=== PATIENT | male | born 1935 | race Caucasian/White ===

== ENCOUNTER 2021-02-15 12:49 | Inpatient (IN) ==
[2021-02-15] MEDS ORDERED: IOPAMIDOL 100 ML BOTTLE IV ONE (12:50)
[2021-02-15] MEDS ORDERED: ONDANSETRON 4 MG/2 ML VIAL IV ONE (14:29)
[2021-02-15] MEDS ORDERED: HYDROmorphone 0.5 MG/0.5 ML SYRINGE IV ONE (14:29)
--- NOTE | 2021-02-15 14:42 | Emergency Department Note ---
Skin/Abscess/FB HPI General Chief complaint: Skin/Abscess/Rash Stated complaint: Left foot wound Time Seen by Provider: 02/15/21 13:22 Source: patient Mode of arrival: wheelchair Limitations: no limitations History of Present Illness HPI Narrative: Narrative: 85-year-old male presents the ER to be evaluated for cellulitis of the left leg. He was discharged on 09 February for sepsis and left leg cellulitis. He was o verseen by Dr. cardona while inpatient. He has a history of A. fib, hypertension, hyperlipidemia, PAD, CAD CABG chronic prednisone use. He was admitted for sepsis from the left leg cellulitis. Sepsis work-up was negative. He was started on empiric vancomycin as he did test positive for nasal MRSA. During his course his CRP started to drop and his white count normalized. Proving although pain and swelling slower to recover. Erythema was improving. He was discharged to residential facility [facility] for another 10 days. He states he finished antibiotics last Thursday with Dr. Jacobson for evaluation of his peripheral arterial disease. He states he had chills last night but has had no nausea, vomiting, urinary symptoms. He has needed narcotics for pain control and this has been increasing over the last few days. He has no other acute complaints at this time. Related Data Home Medications Medication Instructions Recorded Confirmed dabigatran etexilate 150 mg capsule 150 mg PO BID 03/03/18 02/15/21 amlodipine 5 mg tablet 5 mg PO QDAY 07/15/19 02/15/21 prednisone 5 mg tablet 10 mg PO QDAY tab 07/15/19 02/15/21 diltiazem HCl 180 mg PO QAM 02/15/21 02/15/21 famotidine 20 mg PO BID 02/15/21 02/15/21 furosemide 20 mg PO DAILY 02/15/21 02/15/21 hydrocodone-acetaminophen 1 tab PO Q4H PRN 02/15/21 02/15/21 metoprolol succinate 100 mg PO QDAY 02/15/21 02/15/21 montelukast 10 mg PO QDAY 02/15/21 02/15/21 tramadol 50 mg PO Q6H PRN 02/15/21 02/15/21 vitamins A,C,L-[id number]-[id number] 1 cap PO BID 02/15/21 02/15/21 [PreserVision AREDS] Previous Rx's Medication Instructions Recorded albuterol sulfate 90 mcg/actuation 2 puff INHALATION Q6H #54 g 02/04/18 aerosol inhaler budesonide-formoterol HFA 160 2 puff INHALATION BID #30.6 g 02/04/18 mcg-4.5 mcg/actuation aerosol inhaler simvastatin 10 mg tablet 10 mg PO QDAY #90 tab 02/25/18 tamsulosin 0.4 mg capsule 0.4 mg PO QDAY #90 cap 02/25/18 Allergies Allergy/AdvReac Type Severity Reaction Status Date / Time amiodarone Allergy Unknown Shortness Verified 02/15/21 12:49 of Breath lisinopril Allergy Unknown Coughing Verified 02/15/21 12:49 codeine AdvReac Severe Vomiting Verified 02/15/21 12:49 No to Iodine Allergy Unknown Unknown Uncoded 03/23/20 07:54 No to Latex Allergy Unknown Unknown Uncoded 03/23/20 07:54 Review of Systems ROS ROS Narrative: Narrative: All systems ED: reviewed and negative except as stated. [facility] Narrative Patient History Narrative: Narrative: Medical/Surgical/Family History All Active Problems (Updated 02/15/21 @ 17:37 by River Lau PA-C) Cellulitis (Acute) Psoriasis (Chronic) Active asthma (Chronic) Sinusitis chronic, sphenoidal (Chronic) Presbyopia (Chronic) Nuclear cataract of both eyes (Chronic) Tibial artery disease (Chronic) Severe tricuspid regurgitation (Chronic) Hypertension (Chronic) Chronic Kidney Disease (Chronic) Hx of tricuspid valve repair (Chronic 05/02/14) S/P cardiac pacemaker procedure (Chronic 05/06/13) Hx of mitral valve repair (Chronic 05/02/14) History of cardioversion (Chronic 01/15/12) Tricuspid regurgitation (Chronic) Renal artery stenosis (Chronic) Peripheral arterial disease (Chronic) Paroxysmal atrial fibrillation (Chronic) Osteoarthrosis involving multiple sites (Chronic) Osteoarthritis (Chronic) Mitral regurgitation (Chronic) Prostate cancer (Chronic 02/23/14) Lightheadedness (Chronic) Hypertension, essential (Chronic) Hypercholesterolemia (Chronic) Fatigue (Chronic) Dyspnea and respiratory abnormality (Chronic) Atrial fibrillation (Chronic 11/06/11) Arthritis (Chronic) Medical History (Updated 02/15/21 @ 17:37 by River Lau PA-C) 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 Arthritis Atrial fibrillation (11/06/11) Chronic Kidney Disease hypertensive renal disease Coronary artery disease Dyspnea and respiratory abnormality Fatigue History of cardioversion (01/15/12) Hypercholesterolemia Hyperlipidemia Hypertension Hypertension, essential Lightheadedness with fatigue Mitral regurgitation MRSA (methicillin resistant Staphylococcus aureus) Nuclear cataract of both eyes Osteoarthritis Osteoarthrosis involving multiple sites Paroxysmal atrial fibrillation Peripheral arterial disease Presbyopia Prostate cancer (02/23/14) Renal artery stenosis Severe tricuspid regurgitation Tibial artery disease Asymptomatic Tricuspid regurgitation Severe Surgical History History of coronary artery bypass graft x 2 (05/02/14) with EVH & mitral valve repair and tricuspid valve repair Hx of arthroscopic knee surgery 1997 Hx of CABG (05/02/14) x2, Dr. ana Richard Hx of cardiac catheterization (03/02/14) Left Hx of joint replacement 11/2007 hip replacement by Cody Ballesteros Hx of mitral valve repair (05/02/14) Hx of tricuspid valve repair (05/02/14) stable post op repair Hx of umbilical hernia repair 2003 S/P CABG x 2 with EVH S/P cardiac pacemaker procedure (05/06/13) Status post surgery (03/02/14) ventriculography Family History none listed Alzheimer's disease Coronary artery disease Dementia Malignant neoplasm of prostate mother , 97 Cardiovascular disease Essential hypertension father Diabetes mellitus Malignant neoplasm brother Essential hypertension Multiple myeloma Social History Smoking Status: Never smoker Alcohol Intake Frequency: former alcohol drinker Substance Use: does not use Exam Narrative Narrative: Narrative: Gen: No acute distress, patient is sitting upright in his bed and greets me as I enter the room patient is significantly hard of hearing Eyes: PERRL, no conjunctival injection , and symmetrical lids. Sclerae non icteric HENMT: Normocephalic Atraumatic head, external nose and ears. Moist MM. Patient is hard of hearing CVS: +S1/S2, No murmurs or gallops. Radial pulses 2+ and equal bilat. No swelling RESP: Unlabored respiratory effort . Clear to auscultation bilaterally (CTAB). No noted wheezes rales or ronchi. GI: Nontender/Nondistended (NTND), No focal tenderness MSK: 2+ pitting edema on the right 4+ on the left. Significant margin of erythema, purulent circular, 2 cm lesion on the superior heel overlying the Achilles tendon the surrounding area is erythematous and fluctuant. Very swollen foot with normal sensation and cap refill less than 2. Swelling limits palpation of distal pulses. There is significant overlying erythema and the patient is very tender over the area of purulence. Patient has normal plantarflexion and dorsiflexion even against resistance there is low suspicion for capsular infection or septic joint. Patient swelling on the right is significantly less than the left and there is no evidence of erythema on the right. Skin: Warm, Dry . No rashes or lesions . Cap refill less than 2. Neuro: No focal neurological deficit Psych: Awake, Alert, & Oriented (AAO) x3. Appropriate mood and affect . General Limitations: no limitations Course Course Course Narrative: Patient was given vancomycin and linezolid inpatient at [facility]. He was discharged on 09 February to residential facility. He states his last antibiotics were last Thursday. He has had increasing pain, tenderness and swelling since then. He did have positive MRSA swab. He comes in for reevaluation. His family states that the swelling was improving from when he initially went to the ER and had his hospital stay but now it is become static and his pain is increased. It is still purulent and fluctuant. Patient will be evaluated for significant skin infection and lactate and blood cultures will be ordered at this time. Patient will be given IV Dilaudid for pain Zofran for nausea. Vital Signs Vital signs: Vital Signs Temperature 96.9 F L 02/15/21 12:50 Pulse Rate 79 02/15/21 12:50 Respiratory Rate 16 02/15/21 12:50 Blood Pressure 124/65 02/15/21 12:50 Pulse Oximetry (%) 96 02/15/21 12:50 Temperature 96.9 F L 02/15/21 12:50 Pulse Rate 79 02/15/21 12:50 Respiratory Rate 16 02/15/21 12:50 Blood Pressure 124/65 02/15/21 12:50 Pulse Oximetry (%) 96 02/15/21 12:50 MDM MDM Narrative Medical decision making narrative: Narrative: CBC: Elevated white count of 12 with left shift CMP: Unremarkable Lactate: Normal Wound culture: Pending MRSA swab: Pending CRP: Normal Dr. Christie will be contacted as this patient has failed significant therapy with linezolid and vancomycin. This may be a peripheral arterial disease that also needs to be addressed as the patient has failed this therapy and is not significantly improving. Pt has a pending consult from Dr Jacobson that he hasn't been able to follow up with. Dr. Christie: Request the patient be started on cefepime and vancomycin he is concerned for Achilles tendon involvement and possible infection of the calcane us. He requested an MRI be ordered however the patient has a pacemaker and an MRI cannot be obtained. The next next option would be a CT of the lower extremity with contrast. This will be ordered at this time. IMPRESSION: Diffuse cellulitis throughout the ankle and foot - most prominent in dorsal ft. Region. No evidence of soft tissue abscess, osteomyelitis or septic arthritis. Small contained ulceration in the supralcaneal region. It extends to the lateral border of the Achilles tendon. The Achilles tendon shows equivocal thickening which could indicate mild tendinitis. Old ununited fracture of fifth metatarsal base. 8 mm lateral subluxation of the patella and shallow trochlear groove. 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 If he is not improving he is open to consult from the hospitalist. Dr. Hurley will be consulted at this time for admission. Dr Hurley: I spoke with him [id number] and he said he would see the patient for admission. Discharge Plan Patient/Caregiver Discharge Instructions Pt seen by [facility]ER/PA only: Yes Clinical Impression: Cellulitis Patient Disposition: Xfer As Inpt ([facility]) Follow up with: Aristeo Slaughter MD [Primary Care Provider] - Prescriptions: No Action budesonide-formoterol [Symbicort] 160-4.5 mcg/actuation HFA aerosol inhaler 2 puff INHALATION BID Qty: 30.6 RF: 3 albuterol sulfate 90 mcg/actuation HFA aerosol inhaler 2 puff INHALATION Q6H Qty: 54 RF: 3 tamsulosin [Flomax] 0.4 mg capsule,extended release 24hr 0.4 mg PO QDAY Qty: 90 RF: 3 simvastatin 10 mg tablet 10 mg PO QDAY Qty: 90 RF: 3 diltiazem HCl 180 mg Capsule,Extended Release 24 Hr 180 mg PO QAM RF: 0 metoprolol succinate 100 mg Tablet Extended Release 24 Hr 100 mg PO QDAY RF: 0 hydrocodone-acetaminophen 10-325 mg Tablet 1 tab PO Q4H PRN (Reason: Pain) RF: 0 tramadol 50 mg Tablet 50 mg PO Q6H PRN (Reason: Pain) RF: 0 famotidine 20 mg Tablet 20 mg PO BID RF: 0 montelukast 10 mg Tablet 10 mg PO QDAY RF: 0 furosemide 20 mg tablet 20 mg PO DAILY RF: 0 PreserVision AREDS [id number] Capsule 1 cap PO BID RF: 0 dabigatran etexilate [Pradaxa] 150 mg capsule 150 mg PO BID RF: 0 prednisone 5 mg tablet 10 mg PO QDAY RF: 0 amlodipine 5 mg tablet 5 mg PO QDAY RF: 0
[2021-02-15 15:26] LABS: Basophils # (Auto) 0.04 K/mcL (0.00-0.20); Basophils % (Auto) 0.3 % (0.0-2.0); Eosinophils % (Auto) 2.5 % (0.0-7.0); Hematocrit 39.9 % (41.0-55.0); Hemoglobin 12.7 g/dL (13.5-16.5); Lymphocytes # (Auto) 1.32 K/mcL (1.50-4.80); Mean Cell Volume 91.3 fL (80.0-100.0); Mean Corpuscular HGB Conc 31.8 g/dL (31.0-36.0); Mean Platelet Volume 9.8 fL (7.4-10.4); Monocytes # (Auto) 0.79 K/mcL (0.10-0.90); Monocytes % (Auto) 6.6 % (1.0-12.0); Neutrophils % (Auto) 79.6 % (38.0-78.0); Platelet Count 264 K/mcL (140-440); RBC 4.37 M/mcL (4.50-5.90); Red Cell Distribution Width 15.6 % (11.5-14.5)
[2021-02-15] MEDS ORDERED: VANCOMYCIN PER PHARMACY IV ONE ×2 (15:47→21:09)
[2021-02-15] MEDS ORDERED: CEFEPIME 1 GM VIAL IV ONE ×2 (15:47→21:30)
[2021-02-15 16:04] LABS: ALT/SGPT 30 U/L (<40); AST/SGOT 22 U/L (<40); Albumin 3.3 gm/dL (3.2-5.2); Albumin/Globulin Ratio 1.2 (1.0-2.3); Alkaline Phosphatase 78 U/L (39-117); Bilirubin,Total 0.5 mg/dL (0.1-1.0); Blood Urea Nitrogen 25 mg/dL (8-23); Calcium 8.5 mg/dL (8.6-10.4); Carbon Dioxide 24 mmol/L (22-30); Chloride 102 mmol/L (96-108); Globulin 2.8 gm/dL (2.2-3.7); Glomerular Filtration Rate 77; Glucose 96 mg/dL (70-105)
[2021-02-15] MEDS ORDERED: VANCOMYCIN 1,000 MG in 0.9 % SODIUM CHLORIDE 250 ML IV ONE (16:30)
--- NOTE | 2021-02-15 17:16 | Cat Scan Report ---
CLINICAL INFORMATION: Pain and swelling erythema. Evaluate for osteomyelitis and cellulitis COMPARISON: None. TECHNIQUE: 0.625 mm helical slices were obtained from the femoral condyle throughout the tibia fibula ankle and foot. Following reconstruction, 2.5 mm sagittal coronal axial reformatted processed and reviewed at bone and soft tissue windows FINDINGS: Bone windows show mild osteoporosis particularly in the periarticular regions. There is no specific evidence for osteomyelitis. An old ununited fracture through the fifth metatarsal base appreciated. There is moderate degenerative change in all the interphalangeal joints. Moderate cellulitis is seen diffusely throughout the calf, ankle and foot. No evidence of discrete soft tissue abscess. There is only mild diffuse thickening of the Achilles tendon which may be entirely normal. Small ulceration is seen in the skin adjacent to the distal Achilles tendon region. Moderate atrophy of the soleus and gastrocnemius noted. There is no evidence of anisha fasciitis. IMPRESSION: Diffuse cellulitis throughout the ankle and foot - most prominent in dorsal ft. Region. No evidence of soft tissue abscess, osteomyelitis or septic arthritis. Small contained ulceration in the supralcaneal region. It extends to the lateral border of the Achilles tendon. The Achilles tendon shows equivocal thickening which could indicate mild tendinitis. Old ununited fracture of fifth metatarsal base. 8 mm lateral subluxation of the patella and shallow trochlear groove. 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
--- NOTE | 2021-02-15 18:47 | Internal Med History&Physical ---
HPI History of Present Illness Patient information: Note initiated : 02/15/21 at 6:40 pm Service Date, if different from initiated Date: [] Patient: Halie Bose a 85 y/o M admitted on for Left foot wound. Chief Complaint: [] History of present illness: Mr. Bose is a 85 year old M Presents to the ED with worsening left foot pain. Patient was at [facility] from February 03 through the for left foot cellulitis and sepsis. On discharge he was DC'd with [facility] for 10 days. Patient was discharged to senior living facility. He seemed to be doing better and over the past 24 hours has had increasing pain of his left foot. He is also has an ulcer over the Achilles tendon. He was post to follow-up with Dr. Jacobson for peripheral vascular disease but has not had a chance yet. Case was discussed with Dr. Christie who recommended starting him on IV cefepime and vancomycin. And getting a CT foot which which showed cellulitis throughout the ankle and foot with an ulcer over the Achilles tendon with some thickening which could indicate tendinitis. Case was discussed with Dr. Rae he would felt there is no urgent need for surgery and that patient should be trialed on IV antibiotics. I was then contacted for admission. He is afebrile but has a mild leukocytosis of 12. He has bilateral leg edema with worsening on the left side which is been relatively stable. Review of Systems: Pertinent positives as above. Plus some chills but no fever denies headache/fever/nausea/vomiting/chest or abdominal pain/cough/dyspnea/diarrhea. Remaining 10 point review of system reviewed negative PFSH PFSH All Active Problems (Updated 02/15/21 @ 17:37 by River Lau PA-C) Cellulitis (Acute) Psoriasis (Chronic) Active asthma (Chronic) Sinusitis chronic, sphenoidal (Chronic) Presbyopia (Chronic) Nuclear cataract of both eyes (Chronic) Tibial artery disease (Chronic) Severe tricuspid regurgitation (Chronic) Hypertension (Chronic) Chronic Kidney Disease (Chronic) Hx of tricuspid valve repair (Chronic 05/02/14) S/P cardiac pacemaker procedure (Chronic 05/06/13) Hx of mitral valve repair (Chronic 05/02/14) History of cardioversion (Chronic 01/15/12) Tricuspid regurgitation (Chronic) Renal artery stenosis (Chronic) Peripheral arterial disease (Chronic) Paroxysmal atrial fibrillation (Chronic) Osteoarthrosis involving multiple sites (Chronic) Osteoarthritis (Chronic) Mitral regurgitation (Chronic) Prostate cancer (Chronic 02/23/14) Lightheadedness (Chronic) Hypertension, essential (Chronic) Hypercholesterolemia (Chronic) Fatigue (Chronic) Dyspnea and respiratory abnormality (Chronic) Atrial fibrillation (Chronic 11/06/11) Arthritis (Chronic) Medical History (Updated 02/15/21 @ 17:37 by River Lau PA-C) 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 Arthritis Atrial fibrillation (11/06/11) Chronic Kidney Disease hypertensive renal disease Coronary artery disease Dyspnea and respiratory abnormality Fatigue History of cardioversion (01/15/12) Hypercholesterolemia Hyperlipidemia Hypertension Hypertension, essential Lightheadedness with fatigue Mitral regurgitation MRSA (methicillin resistant Staphylococcus aureus) Nuclear cataract of both eyes Osteoarthritis Osteoarthrosis involving multiple sites Paroxysmal atrial fibrillation Peripheral arterial disease Presbyopia Prostate cancer (02/23/14) Renal artery stenosis Severe tricuspid regurgitation Tibial artery disease Asymptomatic Tricuspid regurgitation Severe Surgical History History of coronary artery bypass graft x 2 (05/02/14) with EVH & mitral valve repair and tricuspid valve repair Hx of arthroscopic knee surgery 1997 Hx of CABG (05/02/14) x2, Dr. ana Richard Hx of cardiac catheterization (03/02/14) Left Hx of joint replacement 11/2007 hip replacement by Cody Ballesteros Hx of mitral valve repair (05/02/14) Hx of tricuspid valve repair (05/02/14) stable post op repair Hx of umbilical hernia repair 2003 S/P CABG x 2 with EVH S/P cardiac pacemaker procedure (05/06/13) Status post surgery (03/02/14) ventriculography Family History none listed Alzheimer's disease Coronary artery disease Dementia Malignant neoplasm of prostate mother , 97 Cardiovascular disease Essential hypertension father Diabetes mellitus Malignant neoplasm brother Essential hypertension Multiple myeloma Social History household members: spouse marital status: other: 4 children alcohol intake frequency: former alcohol drinker substance use type: does not use MEDS/ALLERGIES Home Medications and Allergies Home Medications Medication Instructions Recorded Confirmed Type albuterol sulfate 90 mcg/actuation 2 puff INHALATION Q6H #54 g 02/04/18 02/15/21 Rx aerosol inhaler budesonide-formoterol HFA 160 2 puff INHALATION BID #30.6 g 02/04/18 02/15/21 Rx mcg-4.5 mcg/actuation aerosol inhaler simvastatin 10 mg tablet 10 mg PO QDAY #90 tab 02/25/18 02/15/21 Rx tamsulosin 0.4 mg capsule 0.4 mg PO QDAY #90 cap 02/25/18 02/15/21 Rx dabigatran etexilate 150 mg capsule 150 mg PO BID 03/03/18 02/15/21 History amlodipine 5 mg tablet 5 mg PO QDAY 07/15/19 02/15/21 History prednisone 5 mg tablet 10 mg PO QDAY tab 07/15/19 02/15/21 History diltiazem HCl 180 mg PO QAM 02/15/21 02/15/21 History famotidine 20 mg PO BID 02/15/21 02/15/21 History furosemide 20 mg PO DAILY 02/15/21 02/15/21 History hydrocodone-acetaminophen 1 tab PO Q4H PRN 02/15/21 02/15/21 History metoprolol succinate 100 mg PO QDAY 02/15/21 02/15/21 History montelukast 10 mg PO QDAY 02/15/21 02/15/21 History tramadol 50 mg PO Q6H PRN 02/15/21 02/15/21 History vitamins A,C,D-qjmj-binqxx 1 cap PO BID 02/15/21 02/15/21 History [PreserVision AREDS] Allergies Allergy/AdvReac Type Severity Reaction Status Date / Time amiodarone Allergy Unknown Shortness Verified 02/15/21 12:49 of Breath lisinopril Allergy Unknown Coughing Verified 02/15/21 12:49 codeine AdvReac Severe Vomiting Verified 02/15/21 12:49 No to Iodine Allergy Unknown Unknown Uncoded 03/23/20 07:54 No to Latex Allergy Unknown Unknown Uncoded 03/23/20 07:54 EXAM Constitutional Vitals: Temp Pulse Resp BP Pulse Ox 96.9 F L 84 16 158/66 90 02/15/21 12:50 02/15/21 18:11 02/15/21 12:50 02/15/21 18:03 02/15/21 18:11 Exam: General: Alert, Awake, No acute Distress Eyes/N/T: EOMI, PERRL, Head/Neck: neck supple, normocephalic atraumatic CV: irre irreg, No murmurs, normal s1/s2 Pulm: Clear b/l, no wheezing/rhonchi/rales Abd: soft, nontender, +BS x4 Ext: no clubbing/cyanosis. b/l LE 2-3+ edema L>R. right foot/ankle/calf erythema and tenderness Neuro: Alert, no focal deficits, moves all extremities, CN 2-12 grossly intact, symmetrical strength b/l upper/lower, sensations intact b/l upper/lower Skin: warm/dry DATA Data Completed and Pending Labs: Labs from last 24 hours 02/15/21 02/15/21 02/15/21 15:27 14:54 14:44 WBC 12.0 H RBC 4.37 L Hgb 12.7 L Hct 39.9 L MCV 91.3 MCH 29.1 MCHC 31.8 RDW 15.6 H Plt Count 264 MPV 9.8 Neut % (Auto) 79.6 H Lymph % (Auto) 11.0 L [place] % (Auto) 6.6 Eos % (Auto) 2.5 Baso % (Auto) 0.3 Lymph # (Auto) 1.32 L [place] # (Auto) 0.79 Eos # (Auto) 0.30 Baso # (Auto) 0.04 Absolute Neutrophils 9.58 H VBG Lactic Acid 1.9 Sodium 139 Potassium 4.2 Chloride 102 Carbon Dioxide 24 Anion Gap 13.0 BUN 25 H Creatinine 0.9 GFR Calculation 77 Glucose 96 Calcium 8.5 L Total Bilirubin 0.5 AST 22 ALT 30 Alkaline Phosphatase 78 C-Reactive Protein 0.60 Total Protein 6.1 Albumin 3.3 Globulin 2.8 Albumin/Globulin Ratio 1.2 A/P Narrative A/P Narrative: A: *Left foot/ankle cellulitis w/ulcer over achilles: -case d/w Ortho -case d/w Dr. Christie who recommend cefepime/vanco *CAD/PVD: follows with Dr. Rodriguez. on Statin -supposed to f/u with Dr. Jacobson *Afib: On dabigatran/BB *HTN: *COPD(not on O2): on chronic prednisone *Chronic prednisone use: *GERD: P: -IV cefepime/vancomycin -Dr. Christie consulted -Wound care consulted -leg elevation -cont home dilt/BB/norvasc/statin -cont home prednisone -PT/OT -ppx: Dabigatran/home H2 DNR Time Spent With Patient Time: Total time spent is greater than 50% in coordination of care (as documented) at patient's floor/unit and/or counseling patient:
[2021-02-15] MEDS ORDERED: POTASSIUM CHLORIDE 20 MEQ TABLET PO PRN ×2 (21:09)
[2021-02-15] MEDS ORDERED: SENNOSIDES 1 TABLET PO PRN (21:09)
[2021-02-15] MEDS ORDERED: MAGNESIUM SULFATE 2 GM/50 ML BAG IV PRN (21:09)
[2021-02-15] MEDS ORDERED: IPRATROPIUM/ALBUTEROL 3 ML AMPUL.NEB NEB PRN (21:09)
[2021-02-15] MEDS ORDERED: POLYETHYLENE GLYCOL 3350 17 GM PACKET PO PRN (21:09)
[2021-02-15] MEDS ORDERED: ACETAMINOPHEN 325 MG TABLET PO PRN (21:09)
[2021-02-15] MEDS ORDERED: morphine 2 MG/ML VIAL IV PRN (21:09)
[2021-02-15] MEDS ORDERED: POTASSIUM CHLORIDE 40 MEQ in DEXTROSE 5% IN WATER 500 ML IV PRN (21:09)
[2021-02-15] MEDS ORDERED: VANCOMYCIN 500 MG in 0.9 % SODIUM CHLORIDE 100 ML IV ONE (22:00)
[2021-02-15] MEDS: DOCUSATE SODIUM 100 MG CAPSULE PO SCH (22:29)
[2021-02-15] MEDS: FAMOTIDINE 20 MG TABLET PO SCH (22:29)
[2021-02-15] MEDS: 0.9 % SODIUM CHLORIDE 10 ML SYRINGE IV SCH (22:30)
[2021-02-15] MEDS: BUDESONIDE FORMOTEROL INH SCH (22:30)
[2021-02-15] MEDS: DABIGATRAN ETEXILATE MESYLATE 150 MG CAPSULE PO SCH (22:30)
[2021-02-15] MEDS: HYDROcodone/APAP 10/325MG TABLET PO PRN (22:47)
[2021-02-15] MEDS: ALBUTEROL SULFATE 200 PUFF INHALER INH SCH (22:56)
[2021-02-16] MEDS: ALBUTEROL SULFATE 200 PUFF INHALER INH SCH ×4 (04:30→22:56)
[2021-02-16] MEDS: HYDROcodone/APAP 10/325MG TABLET PO PRN ×3 (04:42→20:32)
[2021-02-16] MEDS: 0.9 % SODIUM CHLORIDE 10 ML SYRINGE IV SCH ×3 (06:03→22:55)
[2021-02-16] MEDS: CEFEPIME 2 GM VIAL IV SCH ×3 (06:03→22:56)
[2021-02-16] MEDS ORDERED: VANCOMYCIN PER PHARMACY IV SCH (07:45)
--- NOTE | 2021-02-16 07:55 | Internal Med Progress Note ---
SUBJECTIVE Subjective Patient information: Note initiated : 02/16/21 at 7:53 am Service Date, if different from initiated Date: [] Patient: Halie Bose 85 y/o M admitted on 02/15/21 for Left foot wound. Chief Complaint: [] Interval history: History of present illness: Mr. Bose is a 85 year old M Presents to the ED with worsening left foot pain. Patient was at [facility] from February 03 through the for left foot cellulitis and sepsis. On discharge he was DC'd with Zyvox for 10 days. [facility]. He seemed to be doing better and over the past 24 hours has had increasing pain of his left foot. He is also has an ulcer over the Achilles tendon. He was post to follow-up with Dr. Jacobson for peripheral vascular disease but has not had a chance yet. Case was discussed with Dr. Christie who recommended starting him on IV cefepime and vancomycin. And getting a CT foot which which showed cellulitis throughout the ankle and foot with an ulcer over the Achilles tendon with some thickening which could indicate tendinitis. Case was discussed with Dr. Rae he would felt there is no urgent need for surgery and that patient should be trialed on IV antibiotics. I was then contacted for admission. He is afebrile but has a mild leukocytosis of 12. He has bilateral leg edema with worsening on the left side which is been relatively stable. 02/16 No overnight event or new complaints. Leukocytosis resolved. Review of Systems: denies headache/fever/chills/nausea/vomiting/chest or abdominal pain/cough/dyspnea/diarrhea. Otherwise see above. Constitutional Vitals: Vital Signs Temp Pulse Resp BP Pulse Ox 97.1 F 69 18 145/72 96 02/16/21 07:07 02/16/21 07:07 02/16/21 07:07 02/16/21 07:07 02/16/21 07:07 Period Temp Pulse Resp BP Sys/Sellers Pulse Ox Last 24 Hr 96.9 F-98.6 F 66-106 12-20 124-158/62-83 90-97 Intake and Output 02/15/21 02/16/21 02/16/21 21:59 05:59 13:59 Intake Total 250 100 Output Total 665 Balance 250 -565 Weight 83.915 kg Intake & Output: Intake & Output 02/15/21 02/16/21 02/16/21 21:59 05:59 13:59 Intake Total 250 100 Output Total 665 Balance 250 -565 Weight 83.915 kg Intake: IV 250 100 Vancomycin 500 mg In Sodium 100 Chloride 0.9% 100 ml @ 100 mls/ hr IV ONCE ONE Rx#:[id number] Vancomycin 1,000 mg In Sodium 250 Chloride 0.9% 250 ml @ 250 mls/ hr IV ONCE ONE Rx#:[id number] Oral 0 Output: Urine Catheter Amount 650 Straight 650 Void Amount 15 Other: Urine Appearance Clear Straight Clear Urine Color Bright Yellow Straight Bright Yellow # Voids 1 Exam: General: Alert, Awake, No acute Distress Eyes/N/T: EOMI, Head/Neck: neck supple, CV: irre irreg, No murmurs, 2 Pulm: Clear b/l, no wheezing/rhonchi/rales Abd: soft, nontender, +BS x4 Ext: no clubbing/cyanosis. b/l LE 2-3+ edema L>R. right foot/ankle/calf erythema and tenderness, ulcer over achilles Neuro: Alert, no focal deficits, moves all extremities, Skin: warm/dry OBJ DATA Labs CBC & Chem 7: 02/16/21 05:45 02/15/21 14:44 Labs: Abnormal Lab Results 02/15/21 02/15/21 14:54 14:44 WBC 12.0 H RBC 4.37 L Hgb 12.7 L Hct 39.9 L RDW 15.6 H Neut % (Auto) 79.6 H Lymph % (Auto) 11.0 L Lymph # (Auto) 1.32 L Absolute Neutrophils 9.58 H BUN 25 H Calcium 8.5 L Meds: Medications Acetaminophen (Acetaminophen 325 Mg Tablet) 650 mg PO Q6HP PRN PRN Reason: PAIN/FEVER > 101 Hydrocodone Bitart/Acetaminophen (Hydrocodone/Apap 10/325mg Tablet) 1 tab PO Q4HP PRN; Protocol PRN Reason: Pain Last Admin: 02/16/21 04:42 Dose: 1 tab Documented by: Albuterol Sulfate (Albuterol Sulfate 200 Puff Inhaler) 2 puff INH Q6H AURY Last Admin: 02/16/21 04:30 Dose: Not Given Documented by: Albuterol/Ipratropium (Ipratropium/Albuterol 3 Ml Ampul.Neb) 3 ml NEB Q4HP PRN PRN Reason: Shortness Of Breath Amlodipine Besylate (Amlodipine 5 Mg Tablet) 5 mg PO QDAY [facility] Cefepime HCl (Cefepime 2 Gm Vial) 2 gm IV Q8H [facility]; Protocol Last Admin: 02/16/21 06:03 Dose: 2 gm Documented by: Dabigatran (Dabigatran Etexilate Mesylate 150 Mg Capsule) 150 mg PO BID [facility] Last Admin: 02/15/21 22:30 Dose: Not Given Documented by: Diltiazem HCl (Diltiazem 180 Mg Cap.Xl.24h) 180 mg PO DAILY [facility] Docusate Sodium (Docusate Sodium 100 Mg Capsule) 100 mg PO BID [facility] Last Admin: 02/15/21 22:29 Dose: 100 mg Documented by: Famotidine (Famotidine 20 Mg Tablet) 20 mg PO BID [facility] Last Admin: 02/15/21 22:29 Dose: 20 mg Documented by: Furosemide (Furosemide 20 Mg Tablet) 20 mg PO DAILY [facility] Potassium Chloride 40 meq/ (Dextrose) 520 mls @ 130 mls/hr IV UD PRN PRN Reason: Potassium < 3 Magnesium Sulfate (Magnesium Sulfate) 2 gm in 50 mls @ 50 mls/hr IV UD PRN PRN Reason: Magnesium </= 1.6 Vancomycin HCl 1,250 mg/ (Sodium Chloride) 500 mls @ 333.3 mls/hr IV Q12H [facility] Metoprolol Succinate (Metoprolol Succinate 50 Mg Tab.Xl.24h) 100 mg PO DAILY [facility] Montelukast Sodium (Montelukast 10 Mg Tablet) 10 mg PO QDAY [facility] Morphine Sulfate (Morphine 2 Mg/Ml Vial) 1 - 3 mg IV Q3HP PRN; Protocol PRN Reason: Per Pain Protocol Ondansetron HCl (Ondansetron 4 Mg/2 Ml Vial) 4 mg IV Q4HP PRN PRN Reason: Nausea And Vomiting (Budesonide- Formoterol [ Symbicort] 160-4.5 Mcg/Act Inhaler 1 dose INH BID [facility] Last Admin: 02/15/21 22:30 Dose: Not Given Documented by: Polyethylene Glycol (Polyethylene Glycol 3350 17 Gm Packet) 17 gm PO DAILYP PRN PRN Reason: Constipation Potassium Chloride (Potassium Chloride 20 Meq Tablet) 40 meq PO UD PRN PRN Reason: Potssium is 3-3.5 Potassium Chloride (Potassium Chloride 20 Meq Tablet) 40 meq PO UD PRN PRN Reason: Potassium < 3 Prednisone (Prednisone 5 Mg Tablet) 10 mg PO QAC [facility] Senna (Sennosides 1 Tablet) 2 tab PO DAILYP PRN PRN Reason: Constipation Simvastatin (Simvastatin 10 Mg Tablet) 10 mg PO QDAY [facility] Sodium Chloride (0.9 % Sodium Chloride 10 Ml Syringe) 10 ml IV Q8 [facility] Last Admin: 02/16/21 06:03 Dose: 10 ml Documented by: Tamsulosin HCl (Tamsulosin 0.4 Mg Capsule) 0.4 mg PO QDAY [facility] Tramadol HCl (Tramadol 50 Mg Tablet) 50 mg PO Q6HP PRN; Protocol PRN Reason: Pain Vancomycin HCl (Vancomycin Per Pharmacy) 1 order IV UD [facility]; Protocol A/P Narrative A/P Narrative: A: *Left foot/ankle cellulitis w/ulcer over Achilles: -case d/w Ortho, no further recs -case d/w Dr. Christie who recommends cefepime/vanco *CAD/PVD: follows with Dr. Rodriguez. on Statin -supposed to f/u with Dr. Jacobson *Afib: On dabigatran/BB *HTN: *COPD(not on O2): on chronic prednisone *Chronic prednisone use: *GERD: P: -IV cefepime/vancomycin -Dr. Christie consulted -Dr. Cross/Wound care consulted -leg elevation -cont home dilt/BB/norvasc/statin -cont home prednisone -PT/OT -ppx: Dabigatran/home H2 DNR Time Spent With Patient Time: Total time spent is greater than 50% in coordination of care (as document ed) at patient's floor/unit and/or counseling patient: QUALITY VTE Deep Vein Thrombosis/Pulmonary Embolism Present on Admission: No
[2021-02-16 08:29] LABS: Hematocrit 36.1 % (41.0-55.0); Hemoglobin 11.6 g/dL (13.5-16.5); Mean Cell Volume 90.7 fL (80.0-100.0); Mean Corpuscular HGB Conc 32.1 g/dL (31.0-36.0); Mean Platelet Volume 9.9 fL (7.4-10.4); Platelet Count 249 K/mcL (140-440); RBC 3.98 M/mcL (4.50-5.90); Red Cell Distribution Width 15.5 % (11.5-14.5); WBC 9.9 K/mcL (4.5-11.0)
[2021-02-16 09:16] LABS: ALT/SGPT 25 U/L (<40); AST/SGOT 20 U/L (<40); Albumin 3.4 gm/dL (3.2-5.2); Albumin/Globulin Ratio 1.5 (1.0-2.3); Alkaline Phosphatase 69 U/L (39-117); Bilirubin,Direct < 0.2 mg/dL (0-0.3); Bilirubin,Total 0.7 mg/dL (0.1-1.0); Blood Urea Nitrogen 19 mg/dL (8-23); Calcium 8.4 mg/dL (8.6-10.4); Carbon Dioxide 26 mmol/L (22-30); Chloride 101 mmol/L (96-108); Globulin 2.2 gm/dL (2.2-3.7); Glomerular Filtration Rate 80; Glucose 82 mg/dL (70-105); Lactate Dehydrogenase 315 U/L (135-225); Phosphorous 2.9 mg/dL (2.5-4.5); Triglycerides 109 mg/dL (<150); Uric Acid 4.6 mg/dL (2.5-8.0)
[2021-02-16 09:27] LABS: Anisocytosis FEW (None Seen); Band Neutrophils % 1 % (0-10); Eosinophils % (Manual) 2 % (0-7); Lymphocytes % 13 % (15-49); Monocytes % (Manual) 4 % (1-12); Platelet Estimate NORMAL (Normal); RBC Morphology ABNORMAL (Normal); Segmented Neutrophils % 80 % (38-78)
[2021-02-16] MEDS: MONTELUKAST 10 MG TABLET PO SCH (09:39)
[2021-02-16] MEDS: predniSONE 5 MG TABLET PO SCH (09:39)
[2021-02-16] MEDS: DOCUSATE SODIUM 100 MG CAPSULE PO SCH ×2 (09:39→20:32)
[2021-02-16] MEDS: SIMVASTATIN 10 MG TABLET PO SCH (09:39)
[2021-02-16] MEDS: METOPROLOL SUCCINATE 50 MG TAB.XL.24H PO SCH (09:39)
[2021-02-16] MEDS: TAMSULOSIN 0.4 MG CAPSULE PO SCH (09:39)
[2021-02-16] MEDS: VANCOMYCIN 1,250 MG in 0.9 % SODIUM CHLORIDE 500 ML IV SCH ×2 (09:40→20:34)
[2021-02-16] MEDS: FAMOTIDINE 20 MG TABLET PO SCH ×2 (09:40→20:32)
[2021-02-16] MEDS: amLODIPine 5 MG TABLET PO SCH (09:40)
[2021-02-16] MEDS: FUROSEMIDE 20 MG TABLET PO SCH (09:49)
[2021-02-16] MEDS: DILTIAZEM 180 MG CAP.XL.24H PO SCH (09:50)
[2021-02-16] MEDS: DABIGATRAN ETEXILATE MESYLATE 150 MG CAPSULE PO SCH ×2 (13:12→20:31)
[2021-02-16] MEDS: BUDESONIDE FORMOTEROL INH SCH ×2 (13:13→20:31)
--- NOTE | 2021-02-16 13:28 | General Surgery Consult Note ---
HPI Data of Consult Consult date: 02/16/21 Requesting physician: Salvador Hurley Primary Care Provider: Aristeo Slaughter Consult Narrative Patient Information: Note initiated : 02/16/21 at 1:10 pm Service Date, if different from initiated Date: [] Patient: Halie Bose 85 y/o M admitted on 02/15/21 for Left foot wound. Chief Complaint: [] Chief complaint: Cellulitis LEFT leg and open ulcer LEFT posterior ankle with exposed tendon Reason for consult: Wound care and wound management. cc:: CC: Salvador Hurley I examined this patient with RN and his present in the room. Reviewed admission and history and progress thus far. Patient was treated for Cellulitis of LEFT foot and leg at [facility] (02/03-02/09/2021) Discharged on PO Zyvox. Subsequently seen at [facility] and admitted to floor. Dr. Kyra DAWSON; Orthopedics has recommended conservative treatment at this time. Constitutional Constitutional: Present as per HPI Integumentary Integumentary: Present skin ulcer and wounds Additional comments: PAD / PVD and Lymphedema of both legs. Gradual improvement in Cellulitis of LEFT leg. OPEN stage 4 ulcer and wound with exposed tendon, LEFT posterior ankle. Neurological Neurological: Present other Additional comments: Detailed examination NOT done. NO focal neurological deficits or asymmetry Psychiatric Psychiatric: Present anxiety and other Additional comments: Frustrated that it's taking long time for wound to heal and cellulitis to resolve. 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) Hx of mitral valve repair (Chronic 05/02/14) History of cardioversion (Chronic 01/15/12) Tricuspid regurgitation (Chronic) Renal artery stenosis (Chronic) Peripheral arterial disease (Chronic) Paroxysmal atrial fibrillation (Chronic) Osteoarthrosis involving multiple sites (Chronic) Osteoarthritis (Chronic) Mitral regurgitation (Chronic) Prostate cancer (Chronic 02/23/14) Lightheadedness (Chronic) Hypertension, essential (Chronic) Hypercholesterolemia (Chronic) Fatigue (Chronic) Dyspnea and respiratory abnormality (Chronic) Atrial fibrillation (Chronic 11/06/11) Arthritis (Chronic) Medical History 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 Arthritis Atrial fibrillation (11/06/11) Chronic Kidney Disease hypertensive renal disease Coronary artery disease Dyspnea and respiratory abnormality Fatigue History of cardioversion (01/15/12) Hypercholesterolemia Hyperlipidemia Hypertension Hypertension, essential Lightheadedness with fatigue Mitral regurgitation MRSA (methicillin resistant Staphylococcus aureus) Nuclear cataract of both eyes Osteoarthritis Osteoarthrosis involving multiple sites Paroxysmal atrial fibrillation Peripheral arterial disease Presbyopia Prostate cancer (02/23/14) Renal artery stenosis Severe tricuspid regurgitation Tibial artery disease Asymptomatic Tricuspid regurgitation Severe Surgical History History of coronary artery bypass graft x 2 (05/02/14) with EVH & mitral valve repair and tricuspid valve repair Hx of arthroscopic knee surgery 1997 Hx of CABG (05/02/14) x2, Dr. ana Richard Hx of cardiac catheterization (03/02/14) Left Hx of joint replacement 11/2007 hip replacement by Cody Ballesteros Hx of mitral valve repair (05/02/14) Hx of tricuspid valve repair (05/02/14) stable post op repair Hx of umbilical hernia repair 2003 S/P CABG x 2 with EVH S/P cardiac pacemaker procedure (05/06/13) Status post surgery (03/02/14) ventriculography Family History none listed Alzheimer's disease Coronary artery disease Dementia Malignant neoplasm of prostate mother , 97 Cardiovascular disease Essential hypertension father Diabetes mellitus Malignant neoplasm brother Essential hypertension Multiple myeloma Social History household members: spouse marital status: other: 4 children alcohol intake frequency: former alcohol drinker substance use type: does not use MEDS/ALLERGIES Home Medications and Allergies Home Medications Medication Instructions Recorded Confirmed Type albuterol sulfate 90 mcg/actuation 2 puff INHALATION Q6H #54 g 02/04/18 02/15/21 Rx aerosol inhaler budesonide-formoterol HFA 160 2 puff INHALATION BID #30.6 g 02/04/18 02/15/21 Rx mcg-4.5 mcg/actuation aerosol inhaler simvastatin 10 mg tablet 10 mg PO QDAY #90 tab 02/25/18 02/15/21 Rx tamsulosin 0.4 mg capsule 0.4 mg PO QDAY #90 cap 02/25/18 02/15/21 Rx dabigatran etexilate 150 mg capsule 150 mg PO BID 03/03/18 02/15/21 History amlodipine 5 mg tablet 5 mg PO QDAY 07/15/19 02/15/21 History prednisone 5 mg tablet 10 mg PO QDAY tab 07/15/19 02/15/21 History diltiazem HCl 180 mg PO QAM 02/15/21 02/15/21 History famotidine 20 mg PO BID 02/15/21 02/15/21 History furosemide 20 mg PO DAILY 02/15/21 02/15/21 History hydrocodone-acetaminophen 1 tab PO Q4H PRN 02/15/21 02/15/21 History metoprolol succinate 100 mg PO QDAY 02/15/21 02/15/21 History montelukast 10 mg PO QDAY 02/15/21 02/15/21 History tramadol 50 mg PO Q6H PRN 02/15/21 02/15/21 History vitamins A,C,Z-iese-mtdwhc 1 cap PO BID 02/15/21 02/15/21 History [PreserVision AREDS] Allergies Allergy/AdvReac Type Severity Reaction Status Date / Time amiodarone Allergy Unknown Shortness Verified 02/15/21 12:49 of Breath lisinopril Allergy Unknown Coughing Verified 02/15/21 12:49 codeine AdvReac Severe Vomiting Verified 02/15/21 12:49 No to Iodine Allergy Unknown Unknown Uncoded 03/23/20 07:54 No to Latex Allergy Unknown Unknown Uncoded 03/23/20 07:54 Physical Examination Vital Signs Vital signs: Temp Pulse Resp BP Pulse Ox 97.4 F 66 16 142/79 96 02/16/21 11:23 02/16/21 11:23 02/16/21 11:23 02/16/21 11:23 02/16/21 11:23 General physical appearance General physical exam: well developed, well nourished and no distress Eyes Eye exam: PERRL and normal ocular movement ENT ENT exam: normal pinna, normal mucosa and no congestion Head Head exam IM: Present atraumatic and normocephalic Neck Neck exam: no masses, trachea midline and no venous distension Cardiovascular Cardiovascular exam IM: Present irregular rhythm Peripheral pulses: 0: dorsalis pedis (L) and posterior tibialis (L) Respiratory Respiratory exam: normal respiratory effort and clear to auscultation Abdomen Abdomen: Present soft, non tender and bowel sounds Integumentary Integumentary: Present other (Incresed pigmentation / lymphedema RIGHT leg. NO ulcers. Gradual resolution of LEFT leg cellulitis and open Stage 4 ulcer LEFT posterior ankle with lymphedema. ) Neurologic Neurologic: Present other (No gross focal deficits or asymmetry. ) Musculoskeletal Musculoskeletal: Present other (Did NOT see the patient standing or lying in bed. Will see his wounds tomorrow ( Thursday02/17/2021 )) Psychiatric Psychiatric: Present oriented to time, speech is normal and other (Frustrated that it's taking long time for him to get better. ) Results Labs Result diagrams: 02/16/21 05:45 02/16/21 05:45 Labs: Abnormal lab results 02/15/21 02/15/21 02/16/21 Range/Units 14:44 14:54 05:45 WBC 12.0 H (4.5-11.0) K/mcL RBC 4.37 L 3.98 L (4.50-5.90) M/mcL Hgb 12.7 L 11.6 L (13.5-16.5) g/dL Hct 39.9 L 36.1 L (41.0-55.0) % RDW 15.6 H 15.5 H (11.5-14.5) % Neut % (Auto) 79.6 H (38.0-78.0) % Lymph % (Auto) 11.0 L (15.0-49.0) % Lymph # (Auto) 1.32 L (1.50-4.80) K/mcL Seg Neutrophils % 80 H (38-78) % Lymphocytes % 13 L (15-49) % Absolute Neutrophils 9.58 H (1.80-8.00) K/mcL RBC Morphology Abnormal A (Normal) Anisocytosis Few A (None Seen) BUN 25 H (8-23) mg/dL Calcium 8.5 L (8.6-10.4) mg/dL Lactate Dehydrogenase (135-225) U/L Total Protein (5.9-8.4) gm/dL 02/16/21 Range/Units 05:45 WBC (4.5-11.0) K/mcL RBC (4.50-5.90) M/mcL Hgb (13.5-16.5) g/dL Hct (41.0-55.0) % RDW (11.5-14.5) % Neut % (Auto) (38.0-78.0) % Lymph % (Auto) (15.0-49.0) % Lymph # (Auto) (1.50-4.80) K/mcL Seg Neutrophils % (38-78) % Lymphocytes % (15-49) % Absolute Neutrophils (1.80-8.00) K/mcL RBC Morphology (Normal) Anisocytosis (None Seen) BUN (8-23) mg/dL Calcium 8.4 L (8.6-10.4) mg/dL Lactate Dehydrogenase 315 H (135-225) U/L Total Protein 5.6 L (5.9-8.4) gm/dL Diabetes panel 02/15/21 02/16/21 Range/Units 14:44 05:45 Sodium 139 138 (133-145) mmol/L Potassium 4.2 3.9 (3.3-5.1) mmol/L Chloride 102 101 (96-108) mmol/L Carbon Dioxide 24 26 (22-30) mmol/L BUN 25 H 19 (8-23) mg/dL Creatinine 0.9 0.8 (0.7-1.2) mg/dL Glucose 96 82 (70-105) mg/dL Calcium 8.5 L 8.4 L (8.6-10.4) mg/dL AST 22 20 (<40) U/L ALT 30 25 (<40) U/L Alkaline Phosphatase 78 69 (39-117) U/L Total Protein 6.1 5.6 L (5.9-8.4) gm/dL Albumin 3.3 3.4 (3.2-5.2) gm/dL Triglycerides 109 (<150) mg/dL Calcium panel 02/15/21 02/16/21 Range/Units 14:44 05:45 Calcium 8.5 L 8.4 L (8.6-10.4) mg/dL Phosphorus 2.9 (2.5-4.5) mg/dL Albumin 3.3 3.4 (3.2-5.2) gm/dL Pituitary panel 02/15/21 02/16/21 Range/Units 14:44 05:45 Sodium 139 138 (133-145) mmol/L Potassium 4.2 3.9 (3.3-5.1) mmol/L Chloride 102 101 (96-108) mmol/L Carbon Dioxide 24 26 (22-30) mmol/L BUN 25 H 19 (8-23) mg/dL Creatinine 0.9 0.8 (0.7-1.2) mg/dL Glucose 96 82 (70-105) mg/dL Calcium 8.5 L 8.4 L (8.6-10.4) mg/dL Adrenal panel 02/15/21 02/16/21 Range/Units 14:44 05:45 Sodium 139 138 (133-145) mmol/L Potassium 4.2 3.9 (3.3-5.1) mmol/L Chloride 102 101 (96-108) mmol/L Carbon Dioxide 24 26 (22-30) mmol/L BUN 25 H 19 (8-23) mg/dL Creatinine 0.9 0.8 (0.7-1.2) mg/dL Glucose 96 82 (70-105) mg/dL Calcium 8.5 L 8.4 L (8.6-10.4) mg/dL Total Bilirubin 0.5 0.7 (0.1-1.0) mg/dL AST 22 20 (<40) U/L ALT 30 25 (<40) U/L Alkaline Phosphatase 78 69 (39-117) U/L Total Protein 6.1 5.6 L (5.9-8.4) gm/dL Albumin 3.3 3.4 (3.2-5.2) gm/dL All other labs normal. A/P Narrative A/P Narrative: Assessment: LEFT foot Cellulitis / Resolving . Now on IV antibiotcs per Dr. Christie. CAD PVD / PAD A fibrillation HTN GERD Easy bruises. On Prednisone. Plan: Continue ongoing wound care. Will see patient tomorrow ( Thursday02/17/2021 ) and check his wounds. Further recommendations to follow. Time Spent With Patient Time: Total time spent is greater than 50% in coordination of care (as documented) at patient's floor/unit and/or counseling patient: Total time spent with greater than 50% in coordination of care (as documented) at patient's floor/unit and/or counseling patient:: 25 - 35 minutes
--- NOTE | 2021-02-16 15:24 | EKG ---
[facility] Test Date: 2021-02-15 Pat Name: Halie Bose Department: [facility] Room: 127 Gender: Male [employer] Professor: : 1935 Requested By: Salvador Hurley Order Number: [id number] Reading MD: Curly Jaeger M.D. Measurements Intervals [place] Rate: 97 P: [place]: QRS: -64 QRSD: 112 T: 110 QT: 372 QTc: 473 Interpretive Statements ATRIAL FIBRILLATION, V-RATE 73-129 INCOMPLETE LEFT BUNDLE BRANCH BLOCK PROBABLE LVH WITH SECONDARY REPOL ABNRM NO PRIOR TRACING FOR COMPARISON ABNORMAL ECG Electronically Signed On 02-16-2021 15:23:45 PDT by Curly Jaeger M.D. /[facility] [place]//[id number]
--- NOTE | 2021-02-16 17:21 | Ultrasound Report ---
CLINICAL INFORMATION: leg wounds COMPARISON: None. FINDINGS: See attached sheet IMPRESSION: 1. 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 Heavy atherosclerotic plaque appreciated 2.Right leg runoff: Common iliac artery 50% stenosis. External iliac, common femoral, profunda femoral, superficial femoral, popliteal arteries demonstrate heavy diffuse calcific plaque. No definite stenoses: however, interrogation limited by shadowing plaque. Anterior tibial artery is occluded distally. Peroneal arteries patent. Posterior tibial artery is occluded proximally. 3.Left leg runoff: Common iliac artery not visualized due to bowel gas. There are multiple stenoses greater than 50% in the common femoral, proximal mid and distal superficial femoral, and popliteal arteries. Anterior tibial artery is not visualized and likely occluded. Diminished velocities noted in the peroneal posterior tibial arteries consistent with high-grade stenoses Suggest: CT abdominal aortogram with runoff. If patient cannot tolerate iodinated contrast, then a MR abdominal aortogram with runoff would be adequate substitute exam Interpreted and Authenticated by: Jose L Schaffer 02/16/21
[2021-02-17] MEDS: ALBUTEROL SULFATE 200 PUFF INHALER INH SCH ×4 (03:17→22:18)
[2021-02-17] MEDS: CEFEPIME 2 GM VIAL IV SCH ×3 (05:47→22:18)
[2021-02-17] MEDS: 0.9 % SODIUM CHLORIDE 10 ML SYRINGE IV SCH ×3 (05:47→22:18)
[2021-02-17] MEDS: HYDROcodone/APAP 10/325MG TABLET PO PRN ×3 (05:50→21:33)
[2021-02-17] MEDS: FAMOTIDINE 20 MG TABLET PO SCH ×2 (08:07→20:29)
[2021-02-17] MEDS: predniSONE 5 MG TABLET PO SCH (08:07)
[2021-02-17] MEDS: DOCUSATE SODIUM 100 MG CAPSULE PO SCH ×2 (08:07→20:29)
[2021-02-17] MEDS: METOPROLOL SUCCINATE 50 MG TAB.XL.24H PO SCH (08:07)
[2021-02-17] MEDS: BUDESONIDE FORMOTEROL INH SCH ×2 (08:07→20:27)
[2021-02-17] MEDS: DILTIAZEM 180 MG CAP.XL.24H PO SCH (08:07)
[2021-02-17] MEDS: DABIGATRAN ETEXILATE MESYLATE 150 MG CAPSULE PO SCH ×2 (08:07→20:28)
[2021-02-17] MEDS: amLODIPine 5 MG TABLET PO SCH (08:07)
[2021-02-17] MEDS: MONTELUKAST 10 MG TABLET PO SCH (08:07)
[2021-02-17] MEDS: FUROSEMIDE 20 MG TABLET PO SCH (08:07)
[2021-02-17] MEDS: TAMSULOSIN 0.4 MG CAPSULE PO SCH (08:12)
[2021-02-17] MEDS: SIMVASTATIN 10 MG TABLET PO SCH (08:13)
--- NOTE | 2021-02-17 08:23 | Internal Med Progress Note ---
SUBJECTIVE Subjective Patient information: Note initiated : 02/17/21 at 8:21 am Service Date, if different from initiated Date: [] Patient: Halie Bose 85 y/o M admitted on 02/15/21 for Left foot wound. Chief Complaint: [] Interval history: History of present illness: Mr. Bose is a 85 year old M Presents to the ED with worsening left foot pain. Patient was at [facility] from February 03 through the for left foot cellulitis and sepsis. On discharge he was DC'd with Zyvox for 10 days. Patient was discharged to [facility] facility. He seemed to be doing better and over the past 24 hours has had increasing pain of his left foot. He is also has an ulcer over the Achilles tendon. He was post to follow-up with Dr. Jacobson for peripheral vascular disease but has not had a chance yet. Case was discussed with Dr. Christie who recommended starting him on IV cefepime and vancomycin. And getting a CT foot which which showed cellulitis throughout the ankle and foot with an ulcer over the Achilles tendon with some thickening which could indicate tendinitis. Case was discussed with Dr. Rae he would felt there is no urgent need for surgery and that patient should be trialed on IV antibiotics. I was then contacted for admission. He is afebrile but has a mild leukocytosis of 12. He has bilateral leg edema with worsening on the left side which is been relatively stable. 02/16 No overnight event or new complaints. Leukocytosis resolved. 02/17 Patient slept much better and seems to be feeling better. Continue IV antibiotics and further Rec from infectious disease and wound care. Review of Systems: denies headache/fever/chills/nausea/vomiting/chest or abdominal pain/cough/dyspnea/diarrhea. Otherwise see above. Constitutional Vitals: Vital Signs Temp Pulse Resp BP Pulse Ox 98 F 93 H 18 112/66 95 02/17/21 07:12 02/17/21 07:12 02/17/21 07:26 02/17/21 07:12 02/17/21 07:12 Period Temp Pulse Resp BP Sys/Sellers Pulse Ox Last 24 Hr 97.4 F-99.0 F 64-98 16-18 112-166/61-79 93-96 Intake and Output 02/16/21 02/17/21 02/17/21 21:59 05:59 13:59 Intake Total 500 550 Output Total 625 250 Balance -125 300 Weight 87.317 kg Intake & Output: Intake & Output 02/16/21 02/17/21 02/17/21 21:59 05:59 13:59 Intake Total 500 550 Output Total 625 250 Balance -125 300 Weight 87.317 kg Intake: IV 500 500 Vancomycin 1,250 mg In Sodium 500 500 Chloride 0.9% 500 ml @ 333.3 mls/hr IV Q12H [facility] Rx#: [id number] Oral 0 50 Output: Void Amount 625 250 Other: Urine Appearance Clear Clear Urine Color Bright Yellow Bright Yellow Exam: General: Alert, Awake, No acute Distress Eyes/N/T: EOMI, Head/Neck: neck supple, CV: irre irreg, No murmurs, 2 Pulm: Clear b/l, no wheezing/rhonchi/rales Abd: soft, nontender, +BS x4 Ext: no clubbing/cyanosis. b/l LE 2-3+ edema L>R. right foot/ankle/calf erythema and tenderness, ulcer over achilles Neuro: Alert, no focal deficits, moves all extremities, Skin: warm/dry OBJ DATA Labs CBC & Chem 7: 02/16/21 05:45 02/16/21 05:45 Labs: Abnormal Lab Results 02/16/21 02/16/21 02/15/21 05:45 05:45 14:54 WBC 12.0 H RBC 3.98 L 4.37 L Hgb 11.6 L 12.7 L Hct 36.1 L 39.9 L RDW 15.5 H 15.6 H Neut % (Auto) 79.6 H Lymph % (Auto) 11.0 L Lymph # (Auto) 1.32 L Seg Neutrophils % 80 H Lymphocytes % 13 L Absolute Neutrophils 9.58 H RBC Morphology Abnormal A Anisocytosis Few A BUN Calcium 8.4 L Lactate Dehydrogenase 315 H Total Protein 5.6 L 02/15/21 14:44 WBC RBC Hgb Hct RDW Neut % (Auto) Lymph % (Auto) Lymph # (Auto) Seg Neutrophils % Lymphocytes % Absolute Neutrophils RBC Morphology Anisocytosis BUN 25 H Calcium 8.5 L Lactate Dehydrogenase Total Protein Meds: Medications Acetaminophen (Acetaminophen 325 Mg Tablet) 650 mg PO Q6HP PRN PRN Reason: PAIN/FEVER > 101 Hydrocodone Bitart/Acetaminophen (Hydrocodone/Apap 10/325mg Tablet) 1 tab PO Q4HP PRN; Protocol PRN Reason: Pain Last Admin: 02/17/21 05:50 Dose: 1 tab Documented by: Albuterol Sulfate (Albuterol Sulfate 200 Puff Inhaler) 2 puff INH Q6H [facility] Last Admin: 02/17/21 08:13 Dose: Not Given Documented by: Albuterol/Ipratropium (Ipratropium/Albuterol 3 Ml Ampul.Neb) 3 ml NEB Q4HP PRN PRN Reason: Shortness Of Breath Amlodipine Besylate (Amlodipine 5 Mg Tablet) 5 mg PO QDAY [facility] Last Admin: 02/17/21 08:07 Dose: 5 mg Documented by: Cefepime HCl (Cefepime 2 Gm Vial) 2 gm IV Q8H [facility]; Protocol Last Admin: 02/17/21 05:47 Dose: 2 gm Documented by: Dabigatran (Dabigatran Etexilate Mesylate 150 Mg Capsule) 150 mg PO BID [facility] Last Admin: 02/17/21 08:07 Dose: 150 mg Documented by: Diltiazem HCl (Diltiazem 180 Mg Cap.Xl.24h) 180 mg PO DAILY [facility] Last Admin: 02/17/21 08:07 Dose: 180 mg Documented by: Docusate Sodium (Docusate Sodium 100 Mg Capsule) 100 mg PO BID [facility] Last Admin: 02/17/21 08:07 Dose: 100 mg Documented by: Famotidine (Famotidine 20 Mg Tablet) 20 mg PO BID [facility] Last Admin: 02/17/21 08:07 Dose: 20 mg Documented by: Furosemide (Furosemide 20 Mg Tablet) 20 mg PO DAILY [facility] Last Admin: 02/17/21 08:07 Dose: 20 mg Documented by: Potassium Chloride 40 meq/ (Dextrose) 520 mls @ 130 mls/hr IV UD PRN PRN Reason: Potassium < 3 Magnesium Sulfate (Magnesium Sulfate) 2 gm in 50 mls @ 50 mls/hr IV UD PRN PRN Reason: Magnesium </= 1.6 Vancomycin HCl 1,250 mg/ (Sodium Chloride) 500 mls @ 333.3 mls/hr IV Q12H [facility] Last Infusion: 02/16/21 23:50 Dose: Infused Documented by: Metoprolol Succinate (Metoprolol Succinate 50 Mg Tab.Xl.24h) 100 mg PO DAILY [facility] Last Admin: 02/17/21 08:07 Dose: 100 mg Documented by: Montelukast Sodium (Montelukast 10 Mg Tablet) 10 mg PO QDAY [facility] Last Admin: 02/17/21 08:07 Dose: 10 mg Documented by: Morphine Sulfate (Morphine 2 Mg/Ml Vial) 1 - 3 mg IV Q3HP PRN; Protocol PRN Reason: Per Pain Protocol Ondansetron HCl (Ondansetron 4 Mg/2 Ml Vial) 4 mg IV Q4HP PRN PRN Reason: Nausea And Vomiting (Budesonide- Formoterol [ Symbicort] 160-4.5 Mcg/Act Inhaler 1 dose INH BID [facility] Last Admin: 02/17/21 08:07 Dose: 1 dose Documented by: Polyethylene Glycol (Polyethylene Glycol 3350 17 Gm Packet) 17 gm PO DAILYP PRN PRN Reason: Constipation Potassium Chloride (Potassium Chloride 20 Meq Tablet) 40 meq PO UD PRN PRN Reason: Potssium is 3-3.5 Potassium Chloride (Potassium Chloride 20 Meq Tablet) 40 meq PO UD PRN PRN Reason: Potassium < 3 Prednisone (Prednisone 5 Mg Tablet) 10 mg PO [facility] Last Admin: 02/17/21 08:07 Dose: 10 mg Documented by: Senna (Sennosides 1 Tablet) 2 tab PO DAILYP PRN PRN Reason: Constipation Simvastatin (Simvastatin 10 Mg Tablet) 10 mg PO QDAY [facility] Last Admin: 02/17/21 08:13 Dose: 10 mg Documented by: Sodium Chloride (0.9 % Sodium Chloride 10 Ml Syringe) 10 ml IV Q8 [facility] Last Admin: 02/17/21 05:47 Dose: 10 ml Documented by: Tamsulosin HCl (Tamsulosin 0.4 Mg Capsule) 0.4 mg PO QDAY [facility] Last Admin: 02/17/21 08:12 Dose: 0.4 mg Documented by: Tramadol HCl (Tramadol 50 Mg Tablet) 50 mg PO Q6HP PRN; Protocol PRN Reason: Pain Vancomycin HCl (Vancomycin Per Pharmacy) 1 order IV UD [facility]; Protocol A/P Narrative A/P Narrative: A: *Left foot/ankle cellulitis w/ulcer over Achilles: -case d/w Ortho, no further recs -case d/w Dr. Christie who recommends cefepime/vanco -leukocytosis resolved *CAD/PVD: follows with Dr. Rodriguez. on Statin -supposed to f/u with Dr. Jacobson *Afib: On dabigatran/BB *HTN: *COPD(not on O2): on chronic prednisone *Chronic prednisone use: *GERD: P: -IV cefepime/vancomycin -Dr. Christie consulted -Dr. Cross/Wound care consulted, pt will potentially undergo debridement -leg elevation -cont home dilt/BB/norvasc/statin -cont home prednisone -PT/OT -ppx: Dabigatran/home H2 DNR Time Spent With Patient Time: Total time spent is greater than 50% in coordination of care (as documented) at patient's floor/unit and/or counseling patient: QUALITY VTE Deep Vein Thrombosis/Pulmonary Embolism Present on Admission: No
[2021-02-17] MEDS: VANCOMYCIN 1,000 MG in 0.9 % SODIUM CHLORIDE 250 ML IV SCH ×2 (09:40→20:27)
[2021-02-17] MEDS: VANCOMYCIN 1,250 MG in 0.9 % SODIUM CHLORIDE 500 ML IV SCH (10:13)
--- NOTE | 2021-02-17 12:55 | General Surgery Progress Note ---
SUBJECTIVE Subjective Patient information: Note initiated : 02/17/21 at 12:43 pm Service Date, if different from initiated Date: [] Patient: Halie Bose 85 y/o M admitted on 02/15/21 for Left foot wound. Chief Complaint: [] Additional PMFSH (Level 3 Only): Patient seen with Kathleen CARTER. LEFT posterior and lateral ankle wounds examined. Constitutional Vitals: Vital Signs Temp Pulse Resp BP Pulse Ox 98.2 F 65 18 129/68 94 02/17/21 11:46 02/17/21 11:46 02/17/21 11:46 02/17/21 11:46 02/17/21 11:46 Period Temp Pulse Resp BP Sys/Sellers Pulse Ox Last 24 Hr 97.6 F-99.0 F 64-98 16-18 112-166/61-75 93-96 Intake and Output 02/16/21 02/17/21 02/17/21 21:59 05:59 13:59 Intake Total 500 550 250 Output Total 625 250 Balance -125 300 250 Weight 192 lb 8 oz Intake & Output: Intake & Output 02/16/21 02/17/21 02/17/21 21:59 05:59 13:59 Intake Total 500 550 250 Output Total 625 250 Balance -125 300 250 Weight 192 lb 8 oz Intake: IV 500 500 250 Vancomycin 1,000 mg In Sodium 250 Chloride 0.9% 250 ml @ 250 mls/ hr IV Q12H [facility] Rx#:[id number] Vancomycin 1,250 mg In Sodium 500 500 Chloride 0.9% 500 ml @ 333.3 mls/hr IV Q12H [facility] Rx#: [id number] Oral 0 50 Output: Void Amount 625 250 Other: Meal Breakfast Percent of Meal Consumed 100% Feeding Ability Independent Urine Appearance Clear Clear Urine Color Bright Yellow Bright Yellow General appearance: cooperative and no acute distress Exam: Afebrile. VSS. Able to move in bed and lie on RIGHT side down. LEFT foot and ankle examined. Resolving soft tissue edema and cellulitis of of LEFT leg. Dry scabbed Epidermal ulcer site. Resolving periwound edema of skin and sub cutaneous tissue, Stage 4 open wound of posterior ankle at site of Achilles tendon insertion. Exposed tendon. Undermining at 12 O'clock for 5 CM. NO odor, NO purulence, NO warmth and NO crepitus. Suspect soft tissue necrosis and debris around and above wound bed. Will await MRI of foot, ankle and leg without contrast. Patient will need debridement, pulse lavage and deep tissue biopsies and cultures later. A/P Narrative A/P Narrative: Assessment: Open wound ulcer LEFT posterior ankle and Stage 4 ulcer, Exposed Achilles tendon. Dry scabbed epidermal ulcer over LEFT lateral malleolus. Plan: Continue ongoing wound care as discussed at bedside with Kathleen CARTER. Non contrast MRI of LEFT foot, ankle and leg. Further recommendations to follow. Time Spent With Patient Time: Total time spent is greater than 50% in coordination of care (as documented) at patient's floor/unit and/or counseling patient: Total time spent with greater than 50% in coordination of care (as documented) at patient's floor/unit and/or counseling patient:: 25 - 35 minutes
[2021-02-17] MEDS: traMADol 50 MG TABLET PO PRN (22:30)
[2021-02-18] MEDS: HYDROcodone/APAP 10/325MG TABLET PO PRN (04:01)
[2021-02-18] MEDS: ALBUTEROL SULFATE 200 PUFF INHALER INH SCH ×5 (04:09→21:20)
[2021-02-18] MEDS: 0.9 % SODIUM CHLORIDE 10 ML SYRINGE IV SCH ×3 (06:00→22:10)
[2021-02-18] MEDS: CEFEPIME 2 GM VIAL IV SCH ×3 (06:00→22:15)
--- NOTE | 2021-02-18 07:29 | Internal Med Progress Note ---
SUBJECTIVE Subjective Patient information: Note initiated : 02/18/21 at 7:26 am Service Date, if different from initiated Date: [] Patient: Halie Bose 85 y/o M admitted on 02/15/21 for Left foot wound. Chief Complaint: [] Interval history: History of present illness: Mr. Bose is a 85 year old M Presents to the ED with worsening left foot pain. Patient was at [facility] from February 03 through the for left foot cellulitis and sepsis. On discharge he was DC'd with Zyvox for 10 days. Patient was discharged [facility]. He seemed to be doing better and over the past 24 hours has had increasing pain of his left foot. He is also has an ulcer over the Achilles tendon. He was post to follow-up with Dr. Jacobson for peripheral vascular disease but has not had a chance yet. Case was discussed with Dr. Christie who recommended starting him on IV cefepime and vancomycin. And getting a CT foot which which showed cellulitis throughout the ankle and foot with an ulcer over the Achilles tendon with some thickening which could indicate tendinitis. Case was discussed with Dr. Rae he would felt there is no urgent need for surgery and that patient should be trialed on IV antibiotics. I was then contacted for admission. He is afebrile but has a mild leukocytosis of 12. He has bilateral leg edema with worsening on the left side which is been relatively stable. 02/16 No overnight event or new complaints. Leukocytosis resolved. 02/17 Patient slept much better and seems to be feeling better. Continue IV antibiotics and further Rec from infectious disease and wound care. 02/18 Patient complains of poor sleep because of foot pain. Otherwise no new complaints. Wound care surgeon likely images and then debridement. Review of Systems: denies headache/fever/chills/nausea/vomiting/chest or abdominal pain/cough/dyspnea/diarrhea. Otherwise see above. Constitutional Vitals: Vital Signs Temp Pulse Resp BP Pulse Ox 98.2 F 97 H 16 147/78 95 02/18/21 03:55 02/18/21 03:55 02/18/21 03:55 02/18/21 03:55 02/18/21 03:55 Period Temp Pulse Resp BP Sys/Sellers Pulse Ox Last 24 Hr 98.2 F-98.8 F 65-98 16-18 120-147/61-78 91-95 Intake and Output 02/17/21 02/18/21 02/18/21 21:59 05:59 13:59 Intake Total 375 Output Total 825 200 Balance -825 175 Weight 86.772 kg Intake & Output: Intake & Output 02/17/21 02/18/21 02/18/21 21:59 05:59 13:59 Intake Total 375 Output Total 825 200 Balance -825 175 Weight 86.772 kg Intake: Oral 375 Output: Void Amount 825 200 Other: Urine Appearance Clear Clear Urine Color Bright Yellow Bright Yellow Stool Size Large Small Stool Color Brown Brown Stool Consistency Soft Formed Exam: General: Alert, Awake, No acute Distress Eyes/N/T: EOMI, Head/Neck: neck supple, CV: irre irreg, No murmurs, 2 Pulm: Clear b/l, no wheezing/rhonchi/rales Abd: soft, nontender, +BS x4 Ext: no clubbing/cyanosis. b/l LE 2-3+ edema L>R. right foot/ankle/calf erythema and tenderness, ulcer over achilles Neuro: Alert, no focal deficits, moves all extremities, Skin: warm/dry OBJ DATA Labs CBC & Chem 7: 02/16/21 05:45 02/16/21 05:45 Labs: Abnormal Lab Results 02/16/21 02/16/21 02/15/21 05:45 05:45 14:54 WBC 12.0 H RBC 3.98 L 4.37 L Hgb 11.6 L 12.7 L Hct 36.1 L 39.9 L RDW 15.5 H 15.6 H Neut % (Auto) 79.6 H Lymph % (Auto) 11.0 L Lymph # (Auto) 1.32 L Seg Neutrophils % 80 H Lymphocytes % 13 L Absolute Neutrophils 9.58 H RBC Morphology Abnormal A Anisocytosis Few A BUN Calcium 8.4 L Lactate Dehydrogenase 315 H Total Protein 5.6 L 02/15/21 14:44 WBC RBC Hgb Hct RDW Neut % (Auto) Lymph % (Auto) Lymph # (Auto) Seg Neutrophils % Lymphocytes % Absolute Neutrophils RBC Morphology Anisocytosis BUN 25 H Calcium 8.5 L Lactate Dehydrogenase Total Protein Meds: Medications Acetaminophen (Acetaminophen 325 Mg Tablet) 650 mg PO Q6HP PRN PRN Reason: PAIN/FEVER > 101 Hydrocodone Bitart/Acetaminophen (Hydrocodone/Apap 10/325mg Tablet) 1 tab PO Q4HP PRN; Protocol PRN Reason: Pain Last Admin: 02/18/21 04:01 Dose: 1 tab Documented by: Albuterol Sulfate (Albuterol Sulfate 200 Puff Inhaler) 2 puff INH Q6H [facility] Last Admin: 02/18/21 04:09 Dose: Not Given Documented by: Albuterol/Ipratropium (Ipratropium/Albuterol 3 Ml Ampul.Neb) 3 ml NEB Q4HP PRN PRN Reason: Shortness Of Breath Amlodipine Besylate (Amlodipine 5 Mg Tablet) 5 mg PO QDAY [facility] Last Admin: 02/17/21 08:07 Dose: 5 mg Documented by: Cefepime HCl (Cefepime 2 Gm Vial) 2 gm IV Q8H [facility]; Protocol Last Admin: 02/18/21 06:00 Dose: 2 gm Documented by: Dabigatran (Dabigatran Etexilate Mesylate 150 Mg Capsule) 150 mg PO BID [facility] Last Admin: 02/17/21 20:28 Dose: 150 mg Documented by: Diltiazem HCl (Diltiazem 180 Mg Cap.Xl.24h) 180 mg PO DAILY [facility] Last Admin: 02/17/21 08:07 Dose: 180 mg Documented by: Docusate Sodium (Docusate Sodium 100 Mg Capsule) 100 mg PO BID [facility] Last Admin: 02/17/21 20:29 Dose: 100 mg Documented by: Famotidine (Famotidine 20 Mg Tablet) 20 mg PO BID [facility] Last Admin: 02/17/21 20:29 Dose: 20 mg Documented by: Furosemide (Furosemide 20 Mg Tablet) 20 mg PO DAILY [facility] Last Admin: 02/17/21 08:07 Dose: 20 mg Documented by: Potassium Chloride 40 meq/ (Dextrose) 520 mls @ 130 mls/hr IV UD PRN PRN Reason: Potassium < 3 Magnesium Sulfate (Magnesium Sulfate) 2 gm in 50 mls @ 50 mls/hr IV UD PRN PRN Reason: Magnesium </= 1.6 Vancomycin HCl 1,000 mg/ (Sodium Chloride) 250 mls @ 250 mls/hr IV Q12H [facility] Last Admin: 02/17/21 20:27 Dose: 250 mls/hr Documented by: Metoprolol Succinate (Metoprolol Succinate 50 Mg Tab.Xl.24h) 100 mg PO DAILY [facility] Last Admin: 02/17/21 08:07 Dose: 100 mg Documented by: Montelukast Sodium (Montelukast 10 Mg Tablet) 10 mg PO QDAY [facility] Last Admin: 02/17/21 08:07 Dose: 10 mg Documented by: Morphine Sulfate (Morphine 2 Mg/Ml Vial) 1 - 3 mg IV Q3HP PRN; Protocol PRN Reason: Per Pain Protocol Ondansetron HCl (Ondansetron 4 Mg/2 Ml Vial) 4 mg IV Q4HP PRN PRN Reason: Nausea And Vomiting (Budesonide- Formoterol [ Symbicort] 160-4.5 Mcg/Act Inhaler 1 dose INH BID [facility] Last Admin: 02/17/21 20:27 Dose: 1 dose Documented by: Polyethylene Glycol (Polyethylene Glycol 3350 17 Gm Packet) 17 gm PO DAILYP PRN PRN Reason: Constipation Potassium Chloride (Potassium Chloride 20 Meq Tablet) 40 meq PO UD PRN PRN Reason: Potssium is 3-3.5 Potassium Chloride (Potassium Chloride 20 Meq Tablet) 40 meq PO UD PRN PRN Reason: Potassium < 3 Prednisone (Prednisone 5 Mg Tablet) 10 mg PO [facility] Last Admin: 02/17/21 08:07 Dose: 10 mg Documented by: Senna (Sennosides 1 Tablet) 2 tab PO DAILYP PRN PRN Reason: Constipation Simvastatin (Simvastatin 10 Mg Tablet) 10 mg PO QDAY [facility] Last Admin: 02/17/21 08:13 Dose: 10 mg Documented by: Sodium Chloride (0.9 % Sodium Chloride 10 Ml Syringe) 10 ml IV Q8 [facility] Last Admin: 02/18/21 06:00 Dose: 10 ml Documented by: Tamsulosin HCl (Tamsulosin 0.4 Mg Capsule) 0.4 mg PO QDAY [facility] Last Admin: 02/17/21 08:12 Dose: 0.4 mg Documented by: Tramadol HCl (Tramadol 50 Mg Tablet) 50 mg PO Q6HP PRN; Protocol PRN Reason: Pain Last Admin: 02/17/21 22:30 Dose: 50 mg Documented by: Vancomycin HCl (Vancomycin Per Pharmacy) 1 order IV UD [facility]; Protocol A/P Narrative A/P Narrative: A: *Left foot/ankle cellulitis w/ulcer over Achilles: -case d/w Ortho, no further recs -case d/w Dr. Christie who recommends cefepime/vanco -leukocytosis resolved *CAD/PVD: follows with Dr. Rodriguez. on Statin -supposed to f/u with Dr. Jacobson *Afib: On dabigatran/BB *HTN: *COPD(not on O2): on chronic prednisone *Chronic prednisone use: *GERD: P: -IV cefepime/vancomycin -Dr. Christie consulted -Dr. Cross/Wound care consulted, pt will undergo debridement -leg elevation -cont home dilt/BB/norvasc/statin -cont home prednisone -PT/OT -ppx: Dabigatran/home H2 DNR Time Spent With Patient Time: Total time spent is greater than 50% in coordination of care (as documented) at patient's floor/unit and/or counseling patient: QUALITY VTE Deep Vein Thrombosis/Pulmonary Embolism Present on Admission: No
[2021-02-18] MEDS: MONTELUKAST 10 MG TABLET PO SCH (08:30)
[2021-02-18] MEDS: TAMSULOSIN 0.4 MG CAPSULE PO SCH (08:31)
[2021-02-18] MEDS: amLODIPine 5 MG TABLET PO SCH (08:31)
[2021-02-18] MEDS: FAMOTIDINE 20 MG TABLET PO SCH ×2 (08:31→21:00)
[2021-02-18] MEDS: FUROSEMIDE 20 MG TABLET PO SCH (08:31)
[2021-02-18] MEDS: DOCUSATE SODIUM 100 MG CAPSULE PO SCH ×2 (08:31→21:00)
[2021-02-18] MEDS: DILTIAZEM 180 MG CAP.XL.24H PO SCH (08:32)
[2021-02-18] MEDS: predniSONE 5 MG TABLET PO SCH (08:32)
[2021-02-18] MEDS: METOPROLOL SUCCINATE 50 MG TAB.XL.24H PO SCH (08:32)
[2021-02-18] MEDS: SIMVASTATIN 10 MG TABLET PO SCH (08:32)
[2021-02-18] MEDS: DABIGATRAN ETEXILATE MESYLATE 150 MG CAPSULE PO SCH ×2 (08:33→21:01)
[2021-02-18] MEDS: BUDESONIDE FORMOTEROL INH SCH ×2 (08:34→21:01)
[2021-02-18] MEDS: ONDANSETRON 4 MG/2 ML VIAL IV PRN ×2 (09:10→18:25)
[2021-02-18] MEDS: VANCOMYCIN 1,000 MG in 0.9 % SODIUM CHLORIDE 250 ML IV SCH ×2 (10:21→21:03)
[2021-02-18] MEDS ORDERED: GENTAMICIN SULFATE 40 MG, CLINDAMYCIN 300 MG, BACITRACIN 25,000 UNIT in SODIUM CHLORIDE... IRR SCH (13:30)
[2021-02-18] MEDS: GENTAMICIN SULFATE 40 MG, CLINDAMYCIN 300 MG in SODIUM CHLORIDE IRRIG SOLUTION 500 ML IRR SCH ×2 (13:31→21:11)
--- NOTE | 2021-02-18 13:45 | General Surgery Progress Note ---
SUBJECTIVE Subjective Patient information: Note initiated : 02/18/21 at 1:41 pm Service Date, if different from initiated Date: [] Patient: Halie Bose 85 y/o M admitted on 02/15/21 for Left foot wound. Chief Complaint: [] Additional PMFSH (Level 3 Only): Patient seen on rounds and wounds of LEFT foot, ankle and leg examined. Patient CANNOT get an MRI of foot, ankle and leg as he has a pace maker. He had an uneventful night. No interval developments since last seen. Constitutional Vitals: Vital Signs Temp Pulse Resp BP Pulse Ox 98.7 F 80 18 140/76 97 02/18/21 11:36 02/18/21 11:36 02/18/21 11:36 02/18/21 11:36 02/18/21 11:36 Period Temp Pulse Resp BP Sys/Sellers Pulse Ox Last 24 Hr 98.2 F-98.8 F 80-98 16-20 120-147/61-79 91-97 Intake and Output 02/17/21 02/18/21 02/18/21 21:59 05:59 13:59 Intake Total 250 375 Output Total 825 200 Balance -575 175 Weight 191 lb 4.8 oz Intake & Output: Intake & Output 02/17/21 02/18/21 02/18/21 21:59 05:59 13:59 Intake Total 250 375 Output Total 825 200 Balance -575 175 Weight 191 lb 4.8 oz Intake: IV 250 Vancomycin 1,000 mg In Sodium 250 Chloride 0.9% 250 ml @ 250 mls/ hr IV Q12H [facility] Rx#:[id number] Oral 375 Output: Void Amount 825 200 Other: Urine Appearance Clear Clear Urine Color Bright Yellow Bright Yellow Stool Size Large Small Stool Color Brown Brown Stool Consistency Soft Formed # Voids 1 Exam: AVSS: No changes in LITO. L/E: Significant improvement and resolution of cellulitis on local wound care and IV antibiotics. Eschar over RIGHT lateral malleolus has demarcated well. Will dbride at bedside today. RIGHT posterior ankle wound, exposed Achilles tendon protruding thru wound. No odor, NO purulence, NO crepitus, Periwound skin and subcutaneous texture is improving. RESOLVING EDEMA. Patient cannot get an MRI as he has a pacemaker. Will treat wounds with local wound care. GCB or GC. MONITOR CLOSELY. Will recommend AirCast shoe to stabilize ankle and physical therapy for OOB. A/P Narrative A/P Narrative: Assessment: Open wounds LEFT lateral malleolus of ankle and posterior ankle. Plan: Bedside debridement. GCB or GC dressing changes daily BID. AirCast Boot to stabilize LEFT ankle and get OOB. Time Spent With Patient Time: Total time spent is greater than 50% in coordination of care (as documented) at patient's floor/unit and/or counseling patient: Total time spent with greater than 50% in coordination of care (as documented) at patient's floor/unit and/or counseling patient:: 25 - 35 minutes
--- NOTE | 2021-02-18 13:57 | General Surgery Procedure Note ---
Date of procedure: Note initiated : 02/18/21 at 1:54 pm Service Date, if different from initiated Date: [] Bedside Debridement of wounds LEFT lateral ankle and posterior ankle heel region. See wound care orders:
--- NOTE | 2021-02-18 14:32 | Progress Note ---
DATE OF VISIT: 02/18/2021 PREOPERATIVE DIAGNOSES: 1. 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 2. Resolving cellulitis and complicated skin and skin structure infection of left leg, ankle and foot. POSTOPERATIVE DIAGNOSES: 1. 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 2. Resolving cellulitis and complicated skin and skin structure infection of left leg, ankle and foot. INDICATIONS: This patient has multiple medical problems. He was treated for cellulitis of left foot and ankle, initially with p.o. Zyvox and then with IV antibiotics. His prior treatment was at [facility] in [place] and current treatment is at [facility]. At this time, he cannot undergo an MRI of left foot and ankle as he has a pacemaker. PROCEDURE IN DETAIL. I carried out this procedure with the help of nursing staff at bedside. No anesthetic was used. Verbal consent was obtained from the patient for the procedure. He was placed in right lateral decubitus position. The left leg was placed over the Chux pad. Using sterile precautions, the lower leg, ankle, foot and posterior heel were widely cleaned, prepped, and draped in a standard fashion. No anesthetic was needed. We first proceeded to use a pickup and scissors. The demarcated eschar over left lateral malleolus was sharply excised. The underlying wound bed is granular. There is no evidence of purulence, odor, crepitation. Periwound, skin and soft tissue edema is resolving. The second wound is along the posterior aspect of heel and ankle at the site of Achilles tendon insertion. Protruding tendon fibers were excised with pickup and scissors. This wound has undermining proximally for about 2-1/2 to 3 cm. This was again cleaned with Betadine swab and washed with saline. The plan is to treat these two wounds with GCB antibacterial antibiotic solution and cover these with bacitracin, gauze, Kerlix, and Farhan bandages, respectively. I also recommended that he be given an Aircast boot to stabilize the ankle and get him out of bed and ambulate under supervision of physical therapy. Count of all swabs, instruments and needles was correct. Blood loss was nil. Procedure was well tolerated. VD:jerry Job ID: [id number] Doc ID: [id number] Sr[facility] Cross [facility]
[2021-02-18] MEDS: traMADol 50 MG TABLET PO PRN (23:43)
[2021-02-19] MEDS: ALBUTEROL SULFATE 200 PUFF INHALER INH SCH ×5 (03:18→20:56)
[2021-02-19] MEDS: 0.9 % SODIUM CHLORIDE 10 ML SYRINGE IV SCH ×3 (05:12→20:56)
[2021-02-19] MEDS: CEFEPIME 2 GM VIAL IV SCH ×3 (05:20→22:01)
[2021-02-19 06:49] LABS: Basophils # (Auto) 0.07 K/mcL (0.00-0.20); Basophils % (Auto) 0.6 % (0.0-2.0); Eosinophils # (Auto) 0.35 K/mcL (0.00-0.70); Hematocrit 34.2 % (41.0-55.0); Hemoglobin 11.2 g/dL (13.5-16.5); Lymphocytes # (Auto) 1.68 K/mcL (1.50-4.80); Lymphocytes % (Auto) 14.3 % (15.0-49.0); Mean Cell Volume 88.8 fL (80.0-100.0); Mean Corpuscular HGB Conc 32.7 g/dL (31.0-36.0); Mean Platelet Volume 10.2 fL (7.4-10.4); Monocytes # (Auto) 1.48 K/mcL (0.10-0.90); Monocytes % (Auto) 12.6 % (1.0-12.0); Neutrophils % (Auto) 69.5 % (38.0-78.0); Platelet Count 201 K/mcL (140-440); RBC 3.85 M/mcL (4.50-5.90); Red Cell Distribution Width 15.2 % (11.5-14.5); WBC 11.7 K/mcL (4.5-11.0)
[2021-02-19 07:07] LABS: INR 1.3 (0.9-1.1); Prothrombin Time 16.4 sec (11.9-14.5)
[2021-02-19 07:44] LABS: ALT/SGPT 22 U/L (<40); AST/SGOT 21 U/L (<40); Albumin 3.2 gm/dL (3.2-5.2); Albumin/Globulin Ratio 1.2 (1.0-2.3); Alkaline Phosphatase 64 U/L (39-117); Bilirubin,Direct < 0.2 mg/dL (0-0.3); Bilirubin,Total 0.5 mg/dL (0.1-1.0); Blood Urea Nitrogen 18 mg/dL (8-23); Calcium 8.1 mg/dL (8.6-10.4); Carbon Dioxide 23 mmol/L (22-30); Chloride 101 mmol/L (96-108); Globulin 2.6 gm/dL (2.2-3.7); Glomerular Filtration Rate 80; Glucose 91 mg/dL (70-105); Lactate Dehydrogenase 275 U/L (135-225); Phosphorous 2.1 mg/dL (2.5-4.5); Triglycerides 104 mg/dL (<150); Uric Acid 3.9 mg/dL (2.5-8.0)
[2021-02-19] MEDS: DILTIAZEM 180 MG CAP.XL.24H PO SCH (09:11)
[2021-02-19] MEDS: FUROSEMIDE 20 MG TABLET PO SCH (09:12)
[2021-02-19] MEDS: MONTELUKAST 10 MG TABLET PO SCH (09:12)
[2021-02-19] MEDS: SIMVASTATIN 10 MG TABLET PO SCH (09:13)
[2021-02-19] MEDS: DOCUSATE SODIUM 100 MG CAPSULE PO SCH ×2 (09:13→20:25)
[2021-02-19] MEDS: TAMSULOSIN 0.4 MG CAPSULE PO SCH (09:13)
[2021-02-19] MEDS: FAMOTIDINE 20 MG TABLET PO SCH ×2 (09:13→20:26)
[2021-02-19] MEDS: predniSONE 5 MG TABLET PO SCH (09:13)
[2021-02-19] MEDS: amLODIPine 5 MG TABLET PO SCH (09:13)
[2021-02-19] MEDS: DABIGATRAN ETEXILATE MESYLATE 150 MG CAPSULE PO SCH ×2 (09:14→20:26)
[2021-02-19] MEDS: METOPROLOL SUCCINATE 50 MG TAB.XL.24H PO SCH (09:14)
[2021-02-19] MEDS: BUDESONIDE FORMOTEROL INH SCH ×2 (09:15→20:27)
[2021-02-19] MEDS: VANCOMYCIN 1,000 MG in 0.9 % SODIUM CHLORIDE 250 ML IV SCH ×2 (09:16→20:52)
[2021-02-19] MEDS: traMADol 50 MG TABLET PO PRN ×2 (09:24→21:59)
[2021-02-19] MEDS: GENTAMICIN SULFATE 40 MG, CLINDAMYCIN 300 MG in SODIUM CHLORIDE IRRIG SOLUTION 500 ML IRR SCH ×2 (15:29→20:29)
--- NOTE | 2021-02-19 15:50 | General Surgery Progress Note ---
SUBJECTIVE Subjective Patient information: Note initiated : 02/19/21 at 3:45 pm Service Date, if different from initiated Date: [] Patient: Halie Bose 85 y/o M admitted on 02/15/21 for Left foot wound. Chief Complaint: [] Additional PMFSH (Level 3 Only): No new developments. Constitutional Vitals: Vital Signs Temp Pulse Resp BP Pulse Ox 97.4 F 94 H 16 102/62 96 02/19/21 12:59 02/19/21 12:59 02/19/21 12:59 02/19/21 12:59 02/19/21 12:59 Period Temp Pulse Resp BP Sys/Sellers Pulse Ox Last 24 Hr 97.4 F-98.7 F 94-113 16-16 102-151/62-72 91-96 Intake and Output 02/19/21 02/19/21 02/19/21 05:59 13:59 21:59 Intake Total 350 250 Output Total 500 300 Balance -150 -50 Intake & Output: Intake & Output 02/19/21 02/19/21 02/19/21 05:59 13:59 21:59 Intake Total 350 250 Output Total 500 300 Balance -150 -50 Intake: IV 250 250 Vancomycin 1,000 mg In Sodium 250 250 Chloride 0.9% 250 ml @ 250 mls/ hr IV Q12H [facility] Rx#:[id number] Oral 100 Output: Void Amount 500 300 Other: Urine Appearance Clear Urine Color Bright Yellow Exam: No changes LITO / Wound care recommendations. Appreciate Richard Mcdonough Therapist's note and attempts to ambulate patient. A/P Narrative A/P Narrative: Assessment: Satisfactory progress from wound care point of view. Wound care management plan reviewed with Dr. Roly Solano MD Hospitalist Physician. Will check wounds with Davina RN In Patient Wound Care Nurse. tomorrow AM. Time Spent With Patient Time: Total time spent is greater than 50% in coordination of care (as documented) at patient's floor/unit and/or counseling patient: Total time spent with greater than 50% in coordination of care (as documented) at patient's floor/unit and/or counseling patient:: less than 15 minutes
--- NOTE | 2021-02-19 16:35 | Internal Med Progress Note ---
SUBJECTIVE Subjective Patient information: Note initiated : 02/19/21 at 4:26 pm Service Date, if different from initiated Date: Patient: Halie Bose 85 y/o M admitted on 02/15/21 for Left foot wound. Chief Complaint: Foot pain Constitutional Vitals: Vital Signs Temp Pulse Resp BP Pulse Ox 97.4 F 94 H 16 102/62 96 02/19/21 12:59 02/19/21 12:59 02/19/21 12:59 02/19/21 12:59 02/19/21 12:59 Period Temp Pulse Resp BP Sys/Sellers Pulse Ox Last 24 Hr 97.4 F-98.7 F 94-113 16-16 102-151/62-72 91-96 Intake and Output 02/19/21 02/19/21 02/19/21 05:59 13:59 21:59 Intake Total 350 250 120 Output Total 500 300 Balance -150 -50 120 Intake & Output: Intake & Output 02/19/21 02/19/21 02/19/21 05:59 13:59 21:59 Intake Total 350 250 120 Output Total 500 300 Balance -150 -50 120 Intake: IV 250 250 Vancomycin 1,000 mg In Sodium 250 250 Chloride 0.9% 250 ml @ 250 mls/ hr IV Q12H [facility] Rx#:[id number] Oral 100 120 Output: Void Amount 500 300 Other: Urine Appearance Clear Urine Color Bright Yellow Additional findings Additional findings: General: Alert, Awake, No acute Distress. Pleasant Eyes/N/T: EOMI, Head/Neck: neck supple, CV: irre irreg, No murmurs, Pulm: Decreased breath sound bilaterally. Abd: soft, nontender, +BS x4 Ext: no clubbing/cyanosis. b/l LE 2-3+ edema L>R. right foot/ankle/calf erythema and tenderness, ulcer over Achilles with exposed tendon Neuro: Alert, no focal deficits, moves all extremities, OBJ DATA Labs CBC & Chem 7: 02/19/21 05:32 02/19/21 05:32 Labs: Abnormal Lab Results 02/19/21 02/19/21 02/19/21 05:32 05:32 05:32 WBC 11.7 H RBC 3.85 L Hgb 11.2 L Hct 34.2 L RDW 15.2 H Lymph % (Auto) 14.3 L [place] % (Auto) 12.6 H [place] # (Auto) 1.48 H Absolute Neutrophils 8.16 H PT 16.4 H INR 1.3 H Calcium 8.1 L Phosphorus 2.1 L Lactate Dehydrogenase 275 H Total Protein 5.8 L Meds: Medications Acetaminophen (Acetaminophen 325 Mg Tablet) 650 mg PO Q6HP PRN PRN Reason: PAIN/FEVER > 101 Albuterol Sulfate (Albuterol Sulfate 200 Puff Inhaler) 2 puff INH Q6H [facility] Last Admin: 02/19/21 15:31 Dose: Not Given Documented by: Albuterol/Ipratropium (Ipratropium/Albuterol 3 Ml Ampul.Neb) 3 ml NEB Q4HP PRN PRN Reason: Shortness Of Breath Amlodipine Besylate (Amlodipine 5 Mg Tablet) 5 mg PO QDAY [facility] Last Admin: 02/19/21 09:13 Dose: 5 mg Documented by: Cefepime HCl (Cefepime 2 Gm Vial) 2 gm IV Q8H [facility]; Protocol Last Admin: 02/19/21 15:30 Dose: 2 gm Documented by: Dabigatran (Dabigatran Etexilate Mesylate 150 Mg Capsule) 150 mg PO BID [facility] Last Admin: 02/19/21 09:14 Dose: 150 mg Documented by: Diltiazem HCl (Diltiazem 180 Mg Cap.Xl.24h) 180 mg PO DAILY [facility] Last Admin: 02/19/21 09:11 Dose: 180 mg Documented by: Docusate Sodium (Docusate Sodium 100 Mg Capsule) 100 mg PO BID [facility] Last Admin: 02/19/21 09:13 Dose: 100 mg Documented by: Famotidine (Famotidine 20 Mg Tablet) 20 mg PO BID [facility] Last Admin: 02/19/21 09:13 Dose: 20 mg Documented by: Furosemide (Furosemide 20 Mg Tablet) 20 mg PO DAILY [facility] Last Admin: 02/19/21 09:12 Dose: 20 mg Documented by: Potassium Chloride 40 meq/ (Dextrose) 520 mls @ 130 mls/hr IV UD PRN PRN Reason: Potassium < 3 Magnesium Sulfate (Magnesium Sulfate) 2 gm in 50 mls @ 50 mls/hr IV UD PRN PRN Reason: Magnesium </= 1.6 Vancomycin HCl 1,000 mg/ (Sodium Chloride) 250 mls @ 250 mls/hr IV Q12H [facility] Last Infusion: 02/19/21 10:11 Dose: Infused Documented by: Gentamicin Sulfate 40 mg/Clindamycin Phosphate 300 mg/Sodium Chloride 503 mls @ 0 mls/hr IRR BID [facility] Last Admin: 02/19/21 15:29 Dose: 300 mls/hr Documented by: Metoprolol Succinate (Metoprolol Succinate 50 Mg Tab.Xl.24h) 100 mg PO DAILY [facility] Last Admin: 02/19/21 09:14 Dose: 100 mg Documented by: Montelukast Sodium (Montelukast 10 Mg Tablet) 10 mg PO QDAY [facility] Last Admin: 02/19/21 09:12 Dose: 10 mg Documented by: Morphine Sulfate (Morphine 2 Mg/Ml Vial) 1 - 3 mg IV Q3HP PRN; Protocol PRN Reason: Per Pain Protocol Ondansetron HCl (Ondansetron 4 Mg/2 Ml Vial) 4 mg IV Q4HP PRN PRN Reason: Nausea And Vomiting Last Admin: 02/18/21 18:25 Dose: 4 mg Documented by: Oxycodone/Acetaminophen (Oxycodone/Apap 5/325mg Tablet) 1 - 2 tab PO Q4-6HP PRN; Protocol PRN Reason: Per Pain Protocol (Budesonide- Formoterol [ Symbicort] 160-4.5 Mcg/Act Inhaler 1 dose INH BID [facility] Last Admin: 02/19/21 09:15 Dose: 1 dose Documented by: Polyethylene Glycol (Polyethylene Glycol 3350 17 Gm Packet) 17 gm PO DAILYP PRN PRN Reason: Constipation Potassium Chloride (Potassium Chloride 20 Meq Tablet) 40 meq PO UD PRN PRN Reason: Potssium is 3-3.5 Potassium Chloride (Potassium Chloride 20 Meq Tablet) 40 meq PO UD PRN PRN Reason: Potassium < 3 Prednisone (Pred[facility] 5 Mg Tablet) [facility] Last Admin: 02/19/21 09:13 Dose: 10 mg Documented by: Senna (Sennosides 1 Tablet) 2 tab PO DAILYP PRN PRN Reason: Constipation Simvastatin (Simvastatin 10 Mg Tablet) 10 mg PO QDAY [facility] Last Admin: 02/19/21 09:13 Dose: 10 mg Documented by: Sodium Chloride (0.9 % Sodium Chloride 10 Ml Syringe) 10 ml IV Q8 [facility] Last Admin: 02/19/21 15:30 Dose: 10 ml Documented by: Tamsulosin HCl (Tamsulosin 0.4 Mg Capsule) 0.4 mg PO QDAY [facility] Last Admin: 02/19/21 09:13 Dose: 0.4 mg Documented by: Tramadol HCl (Tramadol 50 Mg Tablet) 50 mg PO Q6HP PRN; Protocol PRN Reason: Pain Last Admin: 02/19/21 09:24 Dose: 50 mg Documented by: Vancomycin HCl (Vancomycin Per Pharmacy) 1 order IV UD [facility]; Protocol A/P Narrative A/P Narrative: 85 year old male admitted with worsening left foot pain. Patient was at [facility] from 02/03- for left foot cellulitis and sepsis. He was discharge to SNF with Zyvox for 10 days. He came with increasing pain of his left foot. He is also has an ulcer over the Achilles tendon. He was post to follow-up with Dr. Jacobson for peripheral vascular disease but has not had a chance yet. ID and Steward/[facility]ward[facility] consulted. # Left foot/ankle cellulitis w/ulcer over Achilles: -Case d/w Ortho, no further recs -Case d/w ID Dr. Christie who recommends IV Cefepime/Vanco - S/p wound debridement by surgery - Cont IV Anbx and Wound care. 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 Rodriguez. on Statin. Not on aspirin but on Pradaxa - Cont home diltiazem, beta-hawk, Norvasc and statin # Chronic Afib: Continue Pradaxa, diltiazem and metoprolol *HTN: Continue metoprolol/diltiazem #COPD(not on O2): on chronic prednisone # Chronic prednisone use: # GERD: Cont home Pepcid. Code DNR DVT ppx: Dabigatran/home H2 Time Spent With Patient Time: Total time spent is greater than 50% in coordination of care (as documented) at patient's floor/unit and/or counseling patient: QUALITY VTE Deep Vein Thrombosis/Pulmonary Embolism Present on Admission: No
[2021-02-20] MEDS: ALBUTEROL SULFATE 200 PUFF INHALER INH SCH ×4 (02:53→22:57)
[2021-02-20] MEDS: 0.9 % SODIUM CHLORIDE 10 ML SYRINGE IV SCH ×3 (05:50→21:39)
[2021-02-20] MEDS: CEFEPIME 2 GM VIAL IV SCH ×3 (05:50→23:03)
[2021-02-20] MEDS: traMADol 50 MG TABLET PO PRN (05:59)
[2021-02-20] MEDS: predniSONE 5 MG TABLET PO SCH (08:59)
[2021-02-20] MEDS: FUROSEMIDE 20 MG TABLET PO SCH (09:00)
[2021-02-20] MEDS: DOCUSATE SODIUM 100 MG CAPSULE PO SCH ×2 (09:00→21:39)
[2021-02-20] MEDS: METOPROLOL SUCCINATE 50 MG TAB.XL.24H PO SCH (09:00)
[2021-02-20] MEDS: SIMVASTATIN 10 MG TABLET PO SCH (09:00)
[2021-02-20] MEDS: TAMSULOSIN 0.4 MG CAPSULE PO SCH (09:00)
[2021-02-20] MEDS: amLODIPine 5 MG TABLET PO SCH (09:00)
[2021-02-20] MEDS: FAMOTIDINE 20 MG TABLET PO SCH ×2 (09:00→21:38)
[2021-02-20] MEDS: DILTIAZEM 180 MG CAP.XL.24H PO SCH (09:00)
[2021-02-20] MEDS: MONTELUKAST 10 MG TABLET PO SCH (09:00)
[2021-02-20] MEDS: BUDESONIDE FORMOTEROL INH SCH ×2 (09:01→21:39)
[2021-02-20] MEDS: DABIGATRAN ETEXILATE MESYLATE 150 MG CAPSULE PO SCH ×2 (09:01→21:39)
[2021-02-20] MEDS: VANCOMYCIN 1,000 MG in 0.9 % SODIUM CHLORIDE 250 ML IV SCH ×2 (09:01→21:39)
[2021-02-20] MEDS: GENTAMICIN SULFATE 40 MG, CLINDAMYCIN 300 MG in SODIUM CHLORIDE IRRIG SOLUTION 500 ML IRR SCH ×2 (09:16→21:54)
--- NOTE | 2021-02-20 09:40 | General Surgery Progress Note ---
SUBJECTIVE Subjective Patient information: Note initiated : 02/20/21 at 9:33 am Service Date, if different from initiated Date: [] Patient: Halie Bose 85 y/o M admitted on 02/15/21 for Left foot wound. Chief Complaint: [] Additional PMFSH (Level 3 Only): Patient seen with Leila RN. No changes in LITO. Local wound care is ongoing. Patient's wants him to be transferred to Rehab. But patient wants to go home. Constitutional Vitals: Vital Signs Temp Pulse Resp BP Pulse Ox 96.9 F L 85 12 137/68 95 02/20/21 09:25 02/20/21 09:25 02/20/21 09:25 02/20/21 09:25 02/20/21 09:25 Period Temp Pulse Resp BP Sys/Sellers Pulse Ox Last 24 Hr 96.9 F-98.4 F 70-94 12-16 102-151/62-86 92-96 Intake and Output 02/19/21 02/20/21 02/20/21 21:59 05:59 13:59 Intake Total 600 400 270 Output Total 300 Balance 600 100 270 Weight 188 lb Intake & Output: Intake & Output 02/19/21 02/20/21 02/20/21 21:59 05:59 13:59 Intake Total 600 400 270 Output Total 300 Balance 600 100 270 Weight 188 lb Intake: Nourishment/Supplement quantity 120 (ml) IV 250 Vancomycin 1,000 mg In Sodium 250 Chloride 0.9% 250 ml @ 250 mls/ hr IV Q12H [facility] Rx#:[id number] Oral 600 150 150 Output: Void Amount 300 Other: Meal Dinner Breakfast Percent of Meal Consumed 75% 50% Feeding Ability Independent Independent Nourishment/Supplement name Ensure Enlive Urine Appearance Clear Urine Color Bright Yellow Stool Size Large Moderate Stool Color Brown Brown Stool Consistency Formed Formed # Voids 1 1 # Bowel Movements 1 1 Exam: AVSS. NO changes in LITO. OOB in chair. Cellulitis LEFT leg, ankle and foot has nearly resolved. Wounds examined. Stage 2 clean ulcer base over RIGHT lateral malleolus. Stage 4 ulcer over posterior lower leg / ankle. Exposed tendon. NEEDS local wound care and Rehab. A/P Narrative A/P Narrative: Assessment: Slow steady progress with wound care / healing. Plan: Continue with local wound care. Physical therapy. Consult Dr. Christie for recommendations about IV antibiotics ( Duration ) If discharged / transferred to Rehab, F/u at wound care center in ONE week. Time Spent With Patient Time: Total time spent is greater than 50% in coordination of care (as documented) at patient's floor/unit and/or counseling patient: Total time spent with greater than 50% in coordination of care (as documented) at patient's floor/unit and/or counseling patient:: 25 - 35 minutes
--- NOTE | 2021-02-20 13:08 | Internal Med Progress Note ---
SUBJECTIVE Subjective Patient information: Note initiated : 02/20/21 at 1:04 pm Service Date, if different from initiated Date: [] Patient: Halie Bose 85 y/o M admitted on 02/15/21 for Left foot wound. Chief Complaint:leg edema swelling pain Interval history: Patient is feeling well. His pain is controlled. He denies nausea vomiting chest pain shortness of breath dizziness. Constitutional Vitals: Vital Signs Temp Pulse Resp BP Pulse Ox 97.5 F 75 12 114/60 96 02/20/21 12:33 02/20/21 12:33 02/20/21 12:33 02/20/21 12:33 02/20/21 12:33 Period Temp Pulse Resp BP Sys/Sellers Pulse Ox Last 24 Hr 96.9 F-98.4 F 70-91 12-12 114-151/60-86 92-96 Intake and Output 02/19/21 02/20/21 02/20/21 21:59 05:59 13:59 Intake Total 600 400 520 Output Total 300 Balance 600 100 520 Weight 85.275 kg Intake & Output: Intake & Output 02/19/21 02/20/21 02/20/21 21:59 05:59 13:59 Intake Total 600 400 520 Output Total 300 Balance 600 100 520 Weight 85.275 kg Intake: Nourishment/Supplement quantity 120 (ml) IV 250 250 Vancomycin 1,000 mg In Sodium 250 250 Chloride 0.9% 250 ml @ 250 mls/ hr IV Q12H [facility] Rx#:[id number] Oral 600 150 150 Output: Void Amount 300 Other: Meal Dinner Lunch Percent of Meal Consumed 75% 50% Feeding Ability Independent Independent Nourishment/Supplement name Ensure Enlive Urine Appearance Clear Urine Color Bright Yellow Stool Size Large Moderate Stool Color Brown Brown Stool Consistency Formed Formed # Voids 1 1 # Bowel Movements 1 1 Exam: General: Alert, Awake, No acute Distress. Pleasant, No distress Eyes/N/T: EOMI, Head/Neck: neck supple, CV: irre irreg, No murmurs, Pulm: Decreased breath sound bilaterally. Abd: soft, nontender, +BS x4 Ext: No clubbing/cyanosis. b/l LE 2-3+ edema L>R. right foot/ankle/calf erythema and tenderness, ulcer over Achilles with exposed tendon Neuro: Alert, no focal deficits, moves all extremities, OBJ DATA Labs CBC & Chem 7: 02/19/21 05:32 02/19/21 05:32 Labs: Abnormal Lab Results 02/19/21 02/19/21 02/19/21 05:32 05:32 05:32 WBC 11.7 H RBC 3.85 L Hgb 11.2 L Hct 34.2 L RDW 15.2 H Lymph % (Auto) 14.3 L [place] % (Auto) 12.6 H [place] # (Auto) 1.48 H Absolute Neutrophils 8.16 H PT 16.4 H INR 1.3 H Calcium 8.1 L Phosphorus 2.1 L Lactate Dehydrogenase 275 H Total Protein 5.8 L Meds: Medications Acetaminophen (Acetaminophen 325 Mg Tablet) 650 mg PO Q6HP PRN PRN Reason: PAIN/FEVER > 101 Albuterol Sulfate (Albuterol Sulfate 200 Puff Inhaler) 2 puff INH Q6H [facility] Last Admin: 02/20/21 09:01 Dose: 2 puff Documented by: Albuterol/Ipratropium (Ipratropium/Albuterol 3 Ml Ampul.Neb) 3 ml NEB Q4HP PRN PRN Reason: Shortness Of Breath Amlodipine Besylate (Amlodipine 5 Mg Tablet) 5 mg PO QDAY [facility] Last Admin: 02/20/21 09:00 Dose: 5 mg Documented by: Cefepime HCl (Cefepime 2 Gm Vial) 2 gm IV Q8H [facility]; Protocol Last Admin: 02/20/21 05:50 Dose: 2 gm Documented by: Dabigatran (Dabigatran Etexilate Mesylate 150 Mg Capsule) 150 mg PO BID [facility] Last Admin: 02/20/21 09:01 Dose: 150 mg Documented by: Diltiazem HCl (Diltiazem 180 Mg Cap.Xl.24h) 180 mg PO DAILY [facility] Last Admin: 02/20/21 09:00 Dose: 180 mg Documented by: Docusate Sodium (Docusate Sodium 100 Mg Capsule) 100 mg PO BID [facility] Last Admin: 02/20/21 09:00 Dose: 100 mg Documented by: Famotidine (Famotidine 20 Mg Tablet) 20 mg PO BID [facility] Last Admin: 02/20/21 09:00 Dose: 20 mg Documented by: Furosemide (Furosemide 20 Mg Tablet) 20 mg PO DAILY [facility] Last Admin: 02/20/21 09:00 Dose: 20 mg Documented by: Potassium Chloride 40 meq/ (Dextrose) 520 mls @ 130 mls/hr IV UD PRN PRN Reason: Potassium < 3 Magnesium Sulfate (Magnesium Sulfate) 2 gm in 50 mls @ 50 mls/hr IV UD PRN PRN Reason: Magnesium </= 1.6 Vancomycin HCl 1,000 mg/ (Sodium Chloride) 250 mls @ 250 mls/hr IV Q12H [facility] Last Infusion: 02/20/21 10:05 Dose: Infused Documented by: Gentamicin Sulfate 40 mg/Clindamycin Phosphate 300 mg/Sodium Chloride 503 mls @ 0 mls/hr IRR BID [facility] Last Admin: 02/20/21 09:16 Dose: 503 mls/hr Documented by: Metoprolol Succinate (Metoprolol Succinate 50 Mg Tab.Xl.24h) 100 mg PO DAILY [facility] Last Admin: 02/20/21 09:00 Dose: 100 mg Documented by: Montelukast Sodium (Montelukast 10 Mg Tablet) 10 mg PO QDAY [facility] Last Admin: 02/20/21 09:00 Dose: 10 mg Documented by: Morphine Sulfate (Morphine 2 Mg/Ml Vial) 1 - 3 mg IV Q3HP PRN; Protocol PRN Reason: Per Pain Protocol Ondansetron HCl (Ondansetron 4 Mg/2 Ml Vial) 4 mg IV Q4HP PRN PRN Reason: Nausea And Vomiting Last Admin: 02/18/21 18:25 Dose: 4 mg Documented by: Oxycodone/Acetaminophen (Oxycodone/Apap 5/325mg Tablet) 1 - 2 tab PO Q4-6HP PRN; Protocol PRN Reason: Per Pain Protocol (Budesonide- Formoterol [ Symbicort] 160-4.5 Mcg/Act Inhaler 1 dose INH BID [facility] Last Admin: 02/20/21 09:01 Dose: 1 dose Documented by: Polyethylene Glycol (Polyethylene Glycol 3350 17 Gm Packet) 17 gm PO DAILYP PRN PRN Reason: Constipation Potassium Chloride (Potassium Chloride 20 Meq Tablet) 40 meq PO UD PRN PRN Reason: Potssium is 3-3.5 Potassium Chloride (Potassium Chloride 20 Meq Tablet) 40 meq PO UD PRN PRN Reason: Potassium < 3 Prednisone (Prednisone 5 Mg Tablet) 10 mg PO [facility] Last Admin: 02/20/21 08:59 Dose: 10 mg Documented by: Senna (Sennosides 1 Tablet) 2 tab PO DAILYP PRN PRN Reason: Constipation Simvastatin (Simvastatin 10 Mg Tablet) 10 mg PO QDAY [facility] Last Admin: 02/20/21 09:00 Dose: 10 mg Documented by: Sodium Chloride (0.9 % Sodium Chloride 10 Ml Syringe) 10 ml IV Q8 [facility] Last Admin: 02/20/21 05:50 Dose: 10 ml Documented by: Tamsulosin HCl (Tamsulosin 0.4 Mg Capsule) 0.4 mg PO QDAY [facility] Last Admin: 02/20/21 09:00 Dose: 0.4 mg Documented by: Tramadol HCl (Tramadol 50 Mg Tablet) 50 mg PO Q6HP PRN; Protocol PRN Reason: Pain Last Admin: 02/20/21 05:59 Dose: 50 mg Documented by: Vancomycin HCl (Vancomycin Per Pharmacy) 1 order IV UD [facility]; Protocol A/P Narrative A/P Narrative: 85 year old male admitted with worsening left foot pain. Patient was at [facility] from 02/03- for left foot cellulitis and sepsis. He was discharge to SNF with Zyvox for 10 days. He came with increasing pain of his left foot. He is also has an ulcer over the Achilles tendon. He was post to follow-up with Dr. Jacobson for peripheral vascular disease but has not had a chance yet. ID and Clinical Research Physician consulted. # Left foot/ankle cellulitis w/ulcer over Achilles: -Case d/w Ortho, no further recs -Case d/w ID Dr. Christie who recommends IV Cefepime/Vanco - S/p wound debridement by surgery - On Vanco/Cefepim per ID recommendation. D/w ID for De escalating Anbx . No Cx. 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 Rodriguez. on Statin. Not on aspirin but on Pradaxa - Cont home diltiazem, beta-hawk, Norvasc and statin # Chronic Afib: Continue Pradaxa, diltiazem and metoprolol *HTN: Continue metoprolol/diltiazem #COPD(not on O2): on chronic prednisone # Chronic prednisone use: # GERD: Cont home Pepcid. Code DNR DVT ppx: Dabigatran/home H2 Dispo: SNF. Likely in 1 day. Time Spent With Patient Time: Total time spent is greater than 50% in coordination of care (as documented) at patient's floor/unit and/or counseling patient: QUALITY VTE Deep Vein Thrombosis/Pulmonary Embolism Present on Admission: No
[2021-02-20] MEDS: MUPIROCIN OINT 2% 22GM NARES SCH (21:38)
[2021-02-21] MEDS: oxyCODONE/APAP 5/325MG TABLET PO PRN ×2 (02:39→05:41)
[2021-02-21] MEDS: ALBUTEROL SULFATE 200 PUFF INHALER INH SCH ×4 (04:11→22:58)
[2021-02-21] MEDS: 0.9 % SODIUM CHLORIDE 10 ML SYRINGE IV SCH ×4 (05:42→21:33)
[2021-02-21] MEDS: traMADol 50 MG TABLET PO PRN (07:45)
[2021-02-21] MEDS: CEFEPIME 2 GM VIAL IV SCH ×3 (07:45→22:55)
[2021-02-21] MEDS: DILTIAZEM 180 MG CAP.XL.24H PO SCH (08:17)
[2021-02-21] MEDS: amLODIPine 5 MG TABLET PO SCH (08:18)
[2021-02-21] MEDS: SIMVASTATIN 10 MG TABLET PO SCH (08:18)
[2021-02-21] MEDS: predniSONE 5 MG TABLET PO SCH (08:19)
[2021-02-21] MEDS: MONTELUKAST 10 MG TABLET PO SCH (08:19)
[2021-02-21] MEDS: TAMSULOSIN 0.4 MG CAPSULE PO SCH (08:19)
[2021-02-21] MEDS: DOCUSATE SODIUM 100 MG CAPSULE PO SCH ×2 (08:19→21:19)
[2021-02-21] MEDS: METOPROLOL SUCCINATE 50 MG TAB.XL.24H PO SCH (08:19)
[2021-02-21] MEDS: FUROSEMIDE 20 MG TABLET PO SCH (08:19)
[2021-02-21] MEDS: FAMOTIDINE 20 MG TABLET PO SCH ×2 (08:19→21:19)
[2021-02-21] MEDS: DABIGATRAN ETEXILATE MESYLATE 150 MG CAPSULE PO SCH ×2 (09:58→21:19)
[2021-02-21] MEDS: VANCOMYCIN 1,000 MG in 0.9 % SODIUM CHLORIDE 250 ML IV SCH ×2 (09:58→21:29)
[2021-02-21] MEDS: MUPIROCIN OINT 2% 22GM NARES SCH ×2 (09:58→21:21)
[2021-02-21] MEDS: BUDESONIDE FORMOTEROL INH SCH ×2 (09:58→21:20)
[2021-02-21] MEDS: GENTAMICIN SULFATE 40 MG, CLINDAMYCIN 300 MG in SODIUM CHLORIDE IRRIG SOLUTION 500 ML IRR SCH ×2 (09:59→21:37)
[2021-02-21] MEDS ORDERED: 0.9 % SODIUM CHLORIDE 10 ML SYRINGE IV PRN (10:08)
--- NOTE | 2021-02-21 14:08 | XRay Report ---
CLINICAL INFORMATION: PICC PLACEMENT COMPARISON: 05/03/2014 FINDINGS: Mild cardiomegaly show slight increase. Antral valve annuloplasty noted. Pacemaker leads in stable satisfactory position. PICC line tip overlies the tricuspid valve. Upper lobe pulmonary vessels are slightly distended, but no edema. There is mild left basilar atelectasis and left diaphragm elevation. IMPRESSION: Borderline CHF or volume overload. Mild left basilar atelectasis The PICC line is distally placed with the tip near the tricuspid valve. The nurses were instructed to withdraw the line 8 cm. Interpreted and Authenticated by: Jose L Schaffer 02/21/21
--- NOTE | 2021-02-21 15:00 | Internal Med Progress Note ---
SUBJECTIVE Subjective Patient information: Note initiated : 02/21/21 at 2:55 pm Service Date, if different from initiated Date: Patient: Hlaie Bose 85 y/o M admitted on 02/15/21 for Left foot wound. Chief Complaint: R Leg wound, Cellulitis Interval history: Patient is feeling well. His pain is controlled. He denies nausea vomiting chest pain shortness of breath dizziness. Constitutional Vitals: Vital Signs Temp Pulse Resp BP Pulse Ox 98.0 F 77 18 136/70 94 02/21/21 12:00 02/21/21 12:00 02/21/21 12:00 02/21/21 12:00 02/21/21 12:00 Period Temp Pulse Resp BP Sys/Sellers Pulse Ox Last 24 Hr 97.6 F-98.5 F 74-88 12-20 136-154/69-77 94-97 Intake and Output 02/21/21 02/21/21 02/21/21 05:59 13:59 21:59 Intake Total 450 250 Output Total 550 Balance -100 250 Intake & Output: Intake & Output 02/21/21 02/21/21 02/21/21 05:59 13:59 21:59 Intake Total 450 250 Output Total 550 Balance -100 250 Intake: IV 250 250 Vancomycin 1,000 mg In Sodium 250 250 Chloride 0.9% 250 ml @ 250 mls/ hr IV Q12H [facility] Rx#:[id number] Oral 200 Output: Void Amount 550 Other: Urine Appearance Clear Urine Color Bright Yellow Stool Size Small Stool Color Brown Stool Consistency Formed # Voids 1 # Bowel Movements 1 Exam: General: Alert, Awake, No acute Distress. Pleasant, No distress Eyes/N/T: EOMI, Head/Neck: neck supple, CV: irre irreg, No murmurs, Pulm: Decreased breath sound bilaterally. Abd: soft, nontender, +BS x4 Ext: No clubbing/cyanosis. b/l LE 2-3+ edema L>R. right foot/ankle/calf erythema and tenderness, ulcer over Achilles with exposed tendon Neuro: Alert, no focal deficits, moves all extremities, OBJ DATA Labs CBC & Chem 7: 02/19/21 05:32 02/19/21 05:32 Labs: Abnormal Lab Results 06/29/21 06/29/21 06/29/21 05:32 05:32 05:32 WBC 11.7 H RBC 3.85 L Hgb 11.2 L Hct 34.2 L RDW 15.2 H Lymph % (Auto) 14.3 L Spink % (Auto) 12.6 H Spink # (Auto) 1.48 H Absolute Neutrophils 8.16 H PT 16.4 H INR 1.3 H Calcium 8.1 L Phosphorus 2.1 L Lactate Dehydrogenase 275 H Total Protein 5.8 L Meds: Medications Acetaminophen (Acetaminophen 325 Mg Tablet) 650 mg PO Q6HP PRN PRN Reason: PAIN/FEVER > 101 Albuterol Sulfate (Albuterol Sulfate 200 Puff Inhaler) 2 puff INH Q6H [facility] Last Admin: 02/21/21 10:00 Dose: Not Given Documented by: Albuterol/Ipratropium (Ipratropium/Albuterol 3 Ml Ampul.Neb) 3 ml NEB Q4HP PRN PRN Reason: Shortness Of Breath Amlodipine Besylate (Amlodipine 5 Mg Tablet) 5 mg PO QDAY [facility] Last Admin: 02/21/21 08:18 Dose: 5 mg Documented by: Cefepime HCl (Cefepime 2 Gm Vial) 1 gm IV Q8H [facility]; Protocol Last Admin: 02/21/21 14:23 Dose: 1 gm Documented by: Dabigatran (Dabigatran Etexilate Mesylate 150 Mg Capsule) 150 mg PO BID [facility] Last Admin: 02/21/21 09:58 Dose: 150 mg Documented by: Diltiazem HCl (Diltiazem 180 Mg Cap.Xl.24h) 180 mg PO DAILY [facility] Last Admin: 02/21/21 08:17 Dose: 180 mg Documented by: Docusate Sodium (Docusate Sodium 100 Mg Capsule) 100 mg PO BID [facility] Last Admin: 02/21/21 08:19 Dose: 100 mg Documented by: Famotidine (Famotidine 20 Mg Tablet) 20 mg PO BID [facility] Last Admin: 02/21/21 08:19 Dose: 20 mg Documented by: Furosemide (Furosemide 20 Mg Tablet) 20 mg PO DAILY [facility] Last Admin: 02/21/21 08:19 Dose: 20 mg Documented by: Heparin Sodium (Porcine) (Heparin Flush 10 Units/Ml 5 Ml Syringe) 2 ml IV Q12 [facility] Heparin Sodium (Porcine) (Heparin Flush 10 Units/Ml 5 Ml Syringe) 2 ml IV ONCE ONE Stop: 02/21/21 14:50 Potassium Chloride 40 meq/ (Dextrose) 520 mls @ 130 mls/hr IV UD PRN PRN Reason: Potassium < 3 Magnesium Sulfate (Magnesium Sulfate) 2 gm in 50 mls @ 50 mls/hr IV UD PRN PRN Reason: Magnesium </= 1.6 Vancomycin HCl 1,000 mg/ (Sodium Chloride) 250 mls @ 250 mls/hr IV Q12H [facility] Last Infusion: 02/21/21 11:20 Dose: Infused Documented by: Gentamicin Sulfate 40 mg/Clindamycin Phosphate 300 mg/Sodium Chloride 503 mls @ 0 mls/hr IRR BID [facility] Last Admin: 02/21/21 09:59 Dose: 5 mls/hr Documented by: Metoprolol Succinate (Metoprolol Succinate 50 Mg Tab.Xl.24h) 100 mg PO DAILY [facility] Last Admin: 02/21/21 08:19 Dose: 100 mg Documented by: Montelukast Sodium (Montelukast 10 Mg Tablet) 10 mg PO QDAY [facility] Last Admin: 02/21/21 08:19 Dose: 10 mg Documented by: Morphine Sulfate (Morphine 2 Mg/Ml Vial) 1 - 3 mg IV Q3HP PRN; Protocol PRN Reason: Per Pain Protocol Mupirocin (Mupirocin Oint 2% 22gm) 1 dose NARES BID [facility] Last Admin: 02/21/21 09:58 Dose: 1 dose Documented by: Ondansetron HCl (Ondansetron 4 Mg/2 Ml Vial) 4 mg IV Q4HP PRN PRN Reason: Nausea And Vomiting Last Admin: 02/18/21 18:25 Dose: 4 mg Documented by: Oxycodone/Acetaminophen (Oxycodone/Apap 5/325mg Tablet) 1 - 2 tab PO Q4-6HP PRN; Protocol PRN Reason: Per Pain Protocol Last Admin: 02/21/21 05:41 Dose: 1 tab Documented by: (Budesonide- Formoterol [ Symbicort] 160-4.5 Mcg/Act Inhaler 1 dose INH BID [facility] Last Admin: 02/21/21 09:58 Dose: 1 dose Documented by: Polyethylene Glycol (Polyethylene Glycol 3350 17 Gm Packet) 17 gm PO DAILYP PRN PRN Reason: Constipation Potassium Chloride (Potassium Chloride 20 Meq Tablet) 40 meq PO UD PRN PRN Reason: Potssium is 3-3.5 Potassium Chloride (Potassium Chloride 20 Meq Tablet) 40 meq PO UD PRN PRN Reason: Potassium < 3 Prednisone (Prednisone 5 Mg Tablet) 10 mg PO QAC [facility] Last Admin: 02/21/21 08:19 Dose: 10 mg Documented by: Senna (Sennosides 1 Tablet) 2 tab PO DAILYP PRN PRN Reason: Constipation Simvastatin (Simvastatin 10 Mg Tablet) 10 mg PO QDAY [facility] Last Admin: 02/21/21 08:18 Dose: 10 mg Documented by: Sodium Chloride (0.9 % Sodium Chloride 10 Ml Syringe) 10 ml IV Q8 [facility] Last Admin: 02/21/21 14:24 Dose: 10 ml Documented by: Sodium Chloride (0.9 % Sodium Chloride 10 Ml Syringe) 10 ml IV UD PRN PRN Reason: FLUSH Sodium Chloride (0.9 % Sodium Chloride 10 Ml Syringe) 10 ml IV Q12 [facility] Tamsulosin HCl (Tamsulosin 0.4 Mg Capsule) 0.4 mg PO QDAY [facility] Last Admin: 02/21/21 08:19 Dose: 0.4 mg Documented by: Tramadol HCl (Tramadol 50 Mg Tablet) 50 mg PO Q6HP PRN; Protocol PRN Reason: Pain Last Admin: 02/21/21 07:45 Dose: 50 mg Documented by: Vancomycin HCl (Vancomycin Per Pharmacy) 1 order IV UD [facility]; Protocol A/P Narrative A/P Narrative: 85 year old male admitted with worsening left foot pain. Patient was at [facility] from 02/03- for left foot cellulitis and sepsis. He was discharge to SNF with Zyvox for 10 days. He came with increasing pain of his left foot. He is also has an ulcer over the Achilles tendon. He was post to follow-up with Dr. Jacobson for peripheral vascular disease but has not had a chance yet. ID and Instrument Technician consulted. # Left foot/ankle cellulitis w/ulcer over Achilles: # Infective R Achillis Tendonitis. -Case d/w Ortho, no further recs -Case d/w ID Dr. Christie who recommends IV Cefepime/Vanco, Vascular work up as follwoing. - S/p wound debridement by surgery - Per ID. Cont Vanco/Cefepim. PICC line and duration should be based on week to week evaluation. - Weekly CBC, Diff, CMP, ESR, CRP # Peripheral arterial disease - NIVA Arterial LE .Right leg runoff: Common iliac artery 50% stenosis. External iliac, common femoral, profunda femoral, superficial femoral, popliteal arteries demonstrate heavy diffuse calcific plaque. No definite stenosis. Anterior tibial artery is occluded distally. Peroneal arteries patent. Posterior tibial artery is occluded proximally. Left leg runoff: Common iliac artery not visualized due to bowel gas, multiple stenoses greater than 50% in the common fe moral, proximal mid and distal superficial femoral, and popliteal arteries. Anterior tibial artery is not visualized and likely occluded. Diminished velocities noted in the peroneal posterior tibial arteries consistent with high- grade stenoses - Cont Pradaxa and change Simvastatin to high potency Lipitor 40mg daily. Add Low dsoe ASA - Consult Dr.John Kavon PALOMINO at [facility] for possible LE angiogram. # AAA. - NIVA LE showede Abdominal aorta: 3.6 cm diameter consistent with mild aneurysm. Heavy atherosclerotic plaque appreciated - BP control. Follow UP CT in 6 months. 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 Rodriguez. on Statin. Not on aspirin but on Pradaxa - Cont home diltiazem, beta-hawk, Norvasc and statin # Chronic Afib: Continue Pradaxa, diltiazem and metoprolol *HTN: Continue metoprolol/diltiazem #COPD(not on O2): on chronic prednisone # Chronic prednisone use: # GERD: Cont home Pepcid. Code DNR DVT ppx: Dabigatran/home H2 Dispo: SNF. In the morning. Time Spent With Patient Time: Total time spent is greater than 50% in coordination of care (as documented) at patient's floor/unit and/or counseling patient: QUALITY VTE Deep Vein Thrombosis/Pulmonary Embolism Present on Admission: No
[2021-02-21] MEDS: ASPIRIN 81 MG TAB.CHEW CHEWED SCH (15:09)
--- NOTE | 2021-02-21 18:07 | Infectious Disease Consult ---
HPI Data of Consult Consult date: 02/21/21 Primary Care Provider: Aristeo Slaughter Consult Narrative Patient Information: Note initiated : 02/21/21 at 5:57 pm Service Date, if different from initiated Date: [February 21, 2021] Patient: Halie Bose 85 y/o M admitted on 02/15/21 for Left foot wound. Chief Complaint: [Left foot pain.] Halie is an 85-year-old man who was admitted in the hospital on February 15. He was previously hospitalized at [facility] February 03 to February 09. He had left foot cellulitis. 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 He received IV vancomycin for left foot cellulitis while in the hospital and then transition to oral Zyvox. He required readmission to the hospital February 15 for increasing foot pain and ongoing left lower extremity cellulitis. Orthopedics and wound care were consulted. He was started on IV vancomycin plus IV cefepime. He reports only moderate improvement in pain. He does not know when his scheduled appointment with Dr. Jacobson happens for vascular evaluation. He has remained afebrile. CT scan was completed February 15 that showed a nonunited left fifth metatarsal but no evidence of osteomyelitis or abscess. He has an ulcer over the Achilles tendon with mild inflammation of the Achilles tendon. Blood cultures on February 15 were negative. He has a history of CABG with tricuspid valve and mitral valve repair. He has paroxysmal atrial fibrillation as well as previous left hip replacement. Dr. Escobar asked for consultation to assist with antibiotic recommendations. cc:: CC: Salvador Hurley Review of Systems Review of systems: General: No complaints of fevers or chills. HEENT: No headaches or sore throat. He is missing a lower front tooth and has a bridge on upper teeth. No neck complaints. Pulmonary: No cough or shortness of breath. Cardiac: No chest pain. GI: No abdominal pain or diarrhea. no dysuria. Extremities: Left lower extremity pain. He is using a walking shoe. 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) Hx of mitral valve repair (Chronic 05/02/14) History of cardioversion (Chronic 01/15/12) Tricuspid regurgitation (Chronic) Renal artery stenosis (Chronic) Peripheral arterial disease (Chronic) Paroxysmal atrial fibrillation (Chronic) Osteoarthrosis involving multiple sites (Chronic) Osteoarthritis (Chronic) Mitral regurgitation (Chronic) Prostate cancer (Chronic 02/23/14) Lightheadedness (Chronic) Hypertension, essential (Chronic) Hypercholesterolemia (Chronic) Fatigue (Chronic) Dyspnea and respiratory abnormality (Chronic) Atrial fibrillation (Chronic 11/06/11) Arthritis (Chronic) Medical History 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 Jacobson pending. Presbyopia Prostate cancer (02/23/14) Renal artery stenosis Severe tricuspid regurgitation Tibial artery disease Asymptomatic Tricuspid regurgitation Severe Surgical History History of coronary artery bypass graft x 2 (05/02/14) with EVH & mitral valve repair and tricuspid valve repair Hx of arthroscopic knee surgery 1998 Hx of CABG (05/02/14) x2, Dr. ana Richard Hx of cardiac catheterization (03/02/14) Left Hx of joint replacement 11/2007 hip replacement by Cody Ballesteros Hx of mitral valve repair (05/02/14) Hx of tricuspid valve repair (05/02/14) stable post op repair Hx of umbilical hernia repair 2003 S/P CABG x 2 with EVH S/P cardiac pacemaker procedure (05/06/13) Status post surgery (03/02/14) ventriculography Family History none listed Alzheimer's disease Coronary artery disease Dementia Malignant neoplasm of prostate mother , 97 Cardiovascular disease Essential hypertension father Diabetes mellitus Malignant neoplasm brother Essential hypertension Multiple myeloma Social History household members: spouse marital status: other: 4 children alcohol intake frequency: former alcohol drinker substance use type: does not use MEDS/ALLERGIES Home Medications and Allergies Home Medications Medication Instructions Recorded Confirmed Type albuterol sulfate 90 mcg/actuation 2 puff INHALATION Q6H #54 g 02/04/18 02/15/21 Rx aerosol inhaler budesonide-formoterol HFA 160 2 puff INHALATION BID #30.6 g 02/04/18 02/15/21 Rx mcg-4.5 mcg/actuation aerosol inhaler simvastatin 10 mg tablet 10 mg PO QDAY #90 tab 02/25/18 02/15/21 Rx tamsulosin 0.4 mg capsule 0.4 mg PO QDAY #90 cap 02/25/18 02/15/21 Rx dabigatran etexilate 150 mg capsule 150 mg PO BID 03/03/18 02/15/21 History amlodipine 5 mg tablet 5 mg PO QDAY 07/15/19 02/15/21 History prednisone 5 mg tablet 10 mg PO QDAY tab 07/15/19 02/15/21 History diltiazem HCl 180 mg PO QAM 02/15/21 02/15/21 History famotidine 20 mg PO BID 02/15/21 02/15/21 History furosemide 20 mg PO DAILY 02/15/21 02/15/21 History hydrocodone-acetaminophen 1 tab PO Q4H PRN 02/15/21 02/15/21 History metoprolol succinate 100 mg PO QDAY 02/15/21 02/15/21 History montelukast 10 mg PO QDAY 02/15/21 02/15/21 History tramadol 50 mg PO Q6H PRN 02/15/21 02/15/21 History vitamins A,C,[id number] 1 cap PO BID 02/15/21 02/15/21 History [PreserVision AREDS] acyclovir 1 applic TOPICAL QIDP PRN 02/16/21 02/16/21 History Allergies Allergy/AdvReac Type Severity Reaction Status Date / Time amiodarone Allergy Intermediate Shortness Verified 02/19/21 06:44 of Breath codeine AdvReac Mild Vomiting Verified 02/19/21 06:44 lisinopril AdvReac Mild Coughing Verified 02/19/21 06:44 Physical Examination Vital Signs Vital signs: Temp Pulse Resp BP Pulse Ox 96.6 F L 74 18 150/78 96 02/21/21 16:00 02/21/21 16:00 02/21/21 16:00 02/21/21 16:00 02/21/21 16:00 Additional Exam Additional exam: General: He was sitting in the recliner earlier today for me to evaluate his left leg. No acute distress. HEENT: EOMI PERRL sclera anicteric. Mouth is moist lips are dry however. Neck is supple. Lungs clear bilaterally. Heart: Irregularly irregular I do not hear heart murmur. Abdomen soft nontender. Extremities. 2+ edema in the left leg 1+ edema in the right leg. Erythema to the left anterior corona. He has a 2 cm ulcer posterior left ankle over Achilles with exposed tendon. Mild indurated edges no drainage. He has foot edema as well as mild foot erythema. Results Laboratory Findings CBC and BMP: 02/19/21 05:32 02/19/21 05:32 ABG, PT/INR, D-dimer: PT/INR, D-dimer PT 16.4 sec (11.9-14.5) H 02/19/21 05:32 INR 1.3 (0.9-1.1) H 02/19/21 05:32 Abnormal lab findings: Abnormal Labs 02/15/21 02/15/21 02/16/21 14:44 14:54 05:45 WBC 12.0 H RBC 4.37 L 3.98 L Hgb 12.7 L 11.6 L Hct 39.9 L 36.1 L RDW 15.6 H 15.5 H Neut % (Auto) 79.6 H Lymph % (Auto) 11.0 L Sterling % (Auto) Lymph # (Auto) 1.32 L Sterling # (Auto) Seg Neutrophils % 80 H Lymphocytes % 13 L Absolute Neutrophils 9.58 H RBC Morphology Abnormal A Anisocytosis Few A PT INR BUN 25 H Calcium 8.5 L Phosphorus Lactate Dehydrogenase Total Protein 02/16/21 02/19/21 02/19/21 05:45 05:32 05:32 WBC 11.7 H RBC 3.85 L Hgb 11.2 L Hct 34.2 L RDW 15.2 H Neut % (Auto) Lymph % (Auto) 14.3 L Sterling % (Auto) 12.6 H Lymph # (Auto) Sterling # (Auto) 1.48 H Seg Neutrophils % Lymphocytes % Absolute Neutrophils 8.16 H RBC Morphology Anisocytosis PT 16.4 H INR 1.3 H BUN Calcium 8.4 L Phosphorus Lactate Dehydrogenase 315 H Total Protein 5.6 L 02/19/21 05:32 WBC RBC Hgb Hct RDW Neut % (Auto) Lymph % (Auto) Sterling % (Auto) Lymph # (Auto) Sterling # (Auto) Seg Neutrophils % Lymphocytes % Absolute Neutrophils RBC Morphology Anisocytosis PT INR BUN Calcium 8.1 L Phosphorus 2.1 L Lactate Dehydrogenase 275 H Total Protein 5.8 L Microbiology: Microbiology 02/15/21 15:26 Blood Blood Culture - Final 02/15/21 14:44 Blood Blood Culture - Final 02/15/21 15:54 Foot - Left Gram Stain - Final 02/15/21 15:54 Foot - Left Wound Culture - Final 02/15/21 22:54 Nose - Both Right and Left MRSA (PCR) - Final February 15 blood cultures negative. MRSA screen positive. February 15 white count 02 February 2026 white count 9.9 February 19 white count 11.7 H&H platelet count 201 on February 15 creatinine 0.9 on February 18 Vanco trough 15.6. Current Vanco dose 1 g twice daily current cefepime dose 2 g 3 times daily. A/P Assessment and plan (1) Cellulitis: Status: Acute Comment: Halie is a 85-year-old man with left lower extremity cellulitis, left posterior ankle ulcer over Achilles tendon, and peripheral vascular disease. He has been on antibiotics since February 03. He was hospitalized February 03 through February 09 followed by oral Zyvox. He was readmitted in the hospital February 15 and started on IV Vanco/cefepime. Left lower extremity cellulitis has improved on this regimen currently day 6 but he has been on antibiotics since February 03. 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 No cultures available from left posterior ankle open ulcer. Blood cultures have been negative. (2) Peripheral arterial disease: Status: Chronic Comment: Vascular evaluation by Dr. Jacobson pendmagui. (3) Tendonitis of ankle, left: Status: Acute Comment: I would consider the left Achilles tendon infected. (4) MRSA (methicillin resistant Staphylococcus aureus) carrier: Status: Acute Comment: Probable MRSA in the left posterior ankle ulcer but need to consider polymicrobial in the setting of prednisone use. 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 (6) On prednisone therapy: Status: Acute Comment: Patient uses prednisone for asthma/COPD. I have reviewed with hospitalist Dr. Deutsch. Patient has had right arm PICC line placement for 3 more weeks of IV cefepime and Vanco. Reduce cefepime to 1 g 3 times daily. Check weekly labs to include CBC CMP sed rate CRP and Vanco trough. I will see him back in clinic in approximately 2 weeks. Duration of therapy will depend on clinical progress of wound healing. I have explained to he and his that this is a difficult wound to heal over the Achilles tendon in the setting of prednisone use. Time Spent With Patient Time: Total time spent is greater than 50% in coordination of care (as documented) at patient's floor/unit and/or counseling patient:
[2021-02-21] MEDS ORDERED: ATORVASTATIN 40 MG TABLET PO SCH (21:00)
[2021-02-22] MEDS: ALBUTEROL SULFATE 200 PUFF INHALER INH SCH ×2 (03:15→09:06)
[2021-02-22] MEDS: oxyCODONE/APAP 5/325MG TABLET PO PRN (03:16)
[2021-02-22] MEDS: CEFEPIME 2 GM VIAL IV SCH (05:42)
[2021-02-22] MEDS: 0.9 % SODIUM CHLORIDE 10 ML SYRINGE IV SCH ×2 (05:42→10:14)
[2021-02-22] MEDS: predniSONE 5 MG TABLET PO SCH (07:37)
[2021-02-22] MEDS: METOPROLOL SUCCINATE 50 MG TAB.XL.24H PO SCH (08:13)
[2021-02-22] MEDS: DILTIAZEM 180 MG CAP.XL.24H PO SCH (08:13)
[2021-02-22] MEDS: FAMOTIDINE 20 MG TABLET PO SCH (08:14)
[2021-02-22] MEDS: MONTELUKAST 10 MG TABLET PO SCH (08:14)
[2021-02-22] MEDS: amLODIPine 5 MG TABLET PO SCH (08:14)
[2021-02-22] MEDS: ASPIRIN 81 MG TAB.CHEW CHEWED SCH (08:15)
[2021-02-22] MEDS: TAMSULOSIN 0.4 MG CAPSULE PO SCH (08:15)
[2021-02-22] MEDS: DOCUSATE SODIUM 100 MG CAPSULE PO SCH (08:15)
[2021-02-22] MEDS: FUROSEMIDE 20 MG TABLET PO SCH (08:15)
--- NOTE | 2021-02-22 08:39 | Discharge Summary ---
Discharge Provider Provider Patient information: Note initiated : 02/22/21 at 8:38 am Service Date, if different from initiated Date: [] Patient: Halie Bsoe 85 y/o M admitted on 02/15/21 for Left foot wound. Chief Complaint: Left LE Cellulitis,Left Achillis tendon infection Date of admission: 02/15/21 20:51 Discharge date: 02/22/21 Primary care physician: Aristeo Slaughter Consults: 02/15/21 Consult to Physician [CONS] Stat Comment: Consulting Provider: Salvador Hurley Reason For Exam: Physician to Consult 02/15/21 21:09 Consult to Physician [CONS] Routine Comment: left foot Consulting Provider: Srini Cross Reason For Exam: Physician to Consult Consult to Physician [CONS] Routine Comment: Consulting Provider: Torres Christie Reason For Exam: Physician to Consult Discharge Meds Discharge Medications Home Medications albuterol sulfate 90 mcg/actuation aerosol inhaler 2 puff INHALATION Q6H #54 g 02/04/18 [Rx Confirmed 02/15/21 Last Taken Unknown] budesonide-formoterol HFA 160 mcg-4.5 mcg/actuation aerosol inhaler 2 puff INHALATION BID #30.6 g 02/04/18 [Rx Confirmed 02/15/21 Last Taken Unknown] tamsulosin 0.4 mg capsule 0.4 mg PO QDAY #90 cap 02/25/18 [Rx Confirmed 02/15/21 Last Taken Unknown] dabigatran etexilate 150 mg capsule 150 mg PO BID 03/03/18 [History Confirmed 02/15/21 Last Taken Unknown] amlodipine 5 mg tablet 5 mg PO QDAY 07/15/19 [History Confirmed 02/15/21 Last Taken Unknown] prednisone 5 mg tablet 10 mg PO QDAY tab 07/15/19 [History Confirmed 02/15/21 Last Taken Unknown] PreserVision AREDS 1 cap PO BID 02/15/21 [History Confirmed 02/15/21 Last Taken Unknown] diltiazem HCl 180 mg PO QAM 02/15/21 [History Confirmed 02/15/21 Last Taken Unknown] famotidine 20 mg PO BID 02/15/21 [History Confirmed 02/15/21 Last Taken Unknown] furosemide 20 mg PO DAILY 02/15/21 [History Confirmed 02/15/21 Last Taken Unknown] hydrocodone-acetaminophen 1 tab PO Q4H PRN 02/15/21 [History Confirmed 02/15/21 Last Taken Unknown] metoprolol succinate 100 mg PO QDAY 02/15/21 [History Confirmed 02/15/21 Last Taken Unknown] montelukast 10 mg PO QDAY 02/15/21 [History Confirmed 02/15/21 Last Taken Unknown] tramadol 50 mg PO Q6H PRN 02/15/21 [History Confirmed 02/15/21 Last Taken Unknown] acyclovir 1 applic TOPICAL QIDP PRN 02/16/21 [History Confirmed 02/16/21 Last Taken Unknown] aspirin 81 mg CHEWED DAILY 30 Days tab 02/22/21 [Rx Last Taken Unknown] atorvastatin 40 mg PO HS 30 Days #30 tab 02/22/21 [Rx Last Taken Unknown] cefepime 1 gm IV Q8H 10 Days ea 02/22/21 [Rx Last Taken Unknown] oxycodone-acetaminophen 1 - 2 tab PO Q4-6HP PRN #30 tab 02/22/21 [Rx Last Taken Unknown] polyethylene glycol 3350 [Miralax] 17 gm PO DAILYP PRN #20 ea 02/22/21 [Rx Last Taken Unknown] prednisone 10 mg PO QAMCC 30 Days #60 tab 02/22/21 [Rx Last Taken Unknown] tramadol 50 mg PO Q6HP PRN #20 tab 02/22/21 [Rx Last Taken Unknown] vancomycin 1,004 mg IV BID #10 ea [facility] Pharmacy to adjust 02/22/21 [Rx Last Taken Unknown] COURSE Hospital Course Hospital course: 85 year old male admitted with worsening left foot pain. Patient was at [facility] from 02/03- for left foot cellulitis and sepsis. He was discharge to SNF with Zyvox for 10 days. He came with increasing pain of his left foot. He is also has an ulcer over the Achilles tendon. He was post to follow-up with Dr. Jacobson for peripheral vascular disease but has not had a chance yet. ID and Customer Experience Analyst consulted. # Left foot/ankle cellulitis w/ulcer over Achilles: # Infective Left Achillis Tendonitis. - Case d/w Ortho, no further recs - Case d/w ID Dr. Christie who recommends IV Cefepime/Vanco, Vascular work, consult. - I called and D/w Dr.John Jacobson the IR at [facility] who advised pt needs LE Angiogram as out patient. Pt needs to be schedule with . - S/p wound debridement by surgery - Per ID Dr Christie Pt needs 3 more weeks of IV cefepime and Vanco. Reduce cefepime to 1 g 3 times daily. Check weekly labs to include CBC CMP sed rate CRP and Vanco trough. I will see him back in clinic in approximately 2 weeks. Duration of therapy will depend on clinical progress of wound healing. I have explained to he and his that this is a difficult wound to heal over the Achilles tendon in the setting of prednisone use. - Weekly CBC, Diff, CMP, ESR, CRP # Peripheral arterial disease - NIVA Arterial LE .Right leg runoff: Common iliac artery 50% stenosis. External iliac, common femoral, profunda femoral, superficial femoral, popliteal arteries demonstrate heavy diffuse calcific plaque. No definite stenosis. Anterior tibial artery is occluded distally. Peroneal arteries patent. Posterior tibial artery is occluded proximally. Left leg runoff: Common iliac artery not visualized due to bowel gas, multiple stenoses greater than 50% in the common femoral, proximal mid and distal superficial femoral, and popliteal arteries. Anterior tibial artery is not visualized and likely occluded. Diminished velocities noted in the peroneal posterior tibial arteries consistent with high- grade stenoses - Cont Pradaxa and change Simvastatin to high potency Lipitor 40mg daily. Added Low dsoe ASA - I called and D/w Dr.John Jacobson the IR at [facility] who advised pt needs LE Angiogram as out patient. Pt needs to be schedule with . # AAA. - NIVA LE showed Abdominal aorta: 3.6 cm diameter consistent with mild aneurysm. Heavy atherosclerotic plaque appreciated. Added ASA 81mg daily. - BP control. Follow UP CT in 6 months. 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 Rodriguez. on Statin. Not on aspirin but on Pradaxa - Cont home diltiazem, beta-hawk, Norvasc and statin # Chronic Afib: Continue Pradaxa, diltiazem and metoprolol *HTN: Continue metoprolol/diltiazem #COPD(not on O2): on chronic prednisone. Cont Home medication # Chronic prednisone use: Cont home Prednisone. # GERD: Cont home Pepcid. Code DNR DVT ppx: Dabigatran/home H2 Disposition: Patient discharged a care home home Condition on discharge: Hemodynamically stable. Tolerated p.o. Discharge activity: As tolerated Discharge diet: Cardiac Discharge medication: See med reconciliation form Discharge follow-up: Primary care physician within 1 week for post hospital follow-up. Infectious disease in [address] Quintana in 2-3 weeks Discharge diagnosis: Achillis tendon infection, RLE Cellulitis Time Spent with Patient Time attestation: Total time spent providing and/or coordinating discharge s ervices: EXAM Constitutional Vitals: Temp Pulse Resp BP Pulse Ox 96.9 F L 84 18 147/76 95 02/22/21 07:18 02/22/21 07:18 02/22/21 07:18 02/22/21 07:18 02/22/21 07:18 Discharge Data Data Completed and Pending Labs on day of discharge: Labs from last 24 hours 02/22/21 08:00 Vancomycin Trough Pending Discharge Plan Patient/Caregiver Discharge Instructions Activity: other Instructions: Vancomycin (By injection), Cefepime (By injection), Cellulitis (DC) Activity Restrictions/Additional Instructions: Non Weight bearing RLE until follow up appointments. Cardiac diet as tolerated. Call your physician for sustained fever greater than 100.5, increase pain not controlled with rest/medication, increase in infection symptoms, any other questions/conerns. This discharge packet is provided to you to help keep you informed about your care. We want to ensure you get everything you need when you go home. You will also be receiving a call from us in a few days to follow up with you and see how you are doing since your discharge. This gives us a chance to listen to any concerns you maybe experiencing since you were discharged or any additional needs you may have, as well as providing us feedback on your care experience. We strive to always provide excellent care and thank you for your feedback and for choosing [facility]. Prescriptions: New atorvastatin 40 mg Tablet 40 mg PO HS 30 Days Qty: 30 RF: 0 cefepime 1 gram Recon Soln 1 gm IV Q8H 10 Days RF: 0 polyethylene glycol 3350 [Miralax] 17 gram Powder In Packet 17 gm PO DAILYP PRN (Reason: Constipation) Qty: 20 RF: 0 prednisone 5 mg Tablet 10 mg PO QAMCC 30 Days Qty: 60 RF: 0 oxycodone-acetaminophen 5-325 mg Tablet 1 - 2 tab PO Q4-6HP PRN (Reason: Per Pain Protocol) Qty: 30 RF: 0 aspirin 81 mg Tablet,Chewable 81 mg CHEWED DAILY 30 Days RF: 0 vancomycin 1,000 mg recon soln 1,004 mg IV BID [facility] Pharmacy to adjust Qty: 10 RF: 0 tramadol 50 mg Tablet 50 mg PO Q6HP PRN (Reason: Pain) Qty: 20 RF: 0 Continued budesonide-formoterol [Symbicort] 160-4.5 mcg/actuation HFA aerosol inhaler 2 puff INHALATION BID Qty: 30.6 RF: 3 albuterol sulfate 90 mcg/actuation HFA aerosol inhaler 2 puff INHALATION Q6H Qty: 54 RF: 3 tamsulosin [Flomax] 0.4 mg capsule,extended release 24hr 0.4 mg PO QDAY Qty: 90 RF: 3 diltiazem HCl 180 mg Capsule,Extended Release 24 Hr 180 mg PO QAM RF: 0 metoprolol succinate 100 mg Tablet Extended Release 24 Hr 100 mg PO QDAY RF: 0 hydrocodone-acetaminophen 10-325 mg Tablet 1 tab PO Q4H PRN (Reason: Pain) RF: 0 tramadol 50 mg Tablet 50 mg PO Q6H PRN (Reason: Pain) RF: 0 famotidine 20 mg Tablet 20 mg PO BID RF: 0 montelukast 10 mg Tablet 10 mg PO QDAY RF: 0 furosemide 20 mg tablet 20 mg PO DAILY RF: 0 PreserVision AREDS [id number] Capsule 1 cap PO BID RF: 0 acyclovir 5 % Ointment 1 applic TOPICAL QIDP PRN (Reason: blisters) RF: 0 dabigatran etexilate [Pradaxa] 150 mg capsule 150 mg PO BID RF: 0 prednisone 5 mg tablet 10 mg PO QDAY RF: 0 amlodipine 5 mg tablet 5 mg PO QDAY RF: 0 Discontinued simvastatin 10 mg tablet 10 mg PO QDAY Qty: 90 RF: 3 Other Ambulatory Orders: Wound Care Instructions (CONT) Location: None Selected Ordered By: Srini Cross OT Discharge Order (Routine) Location: None Selected Ordered By: Roly Solano Outpatient PICC Care (Daily) Location: None Selected Ordered By: Roly Solano Physical Therapy at Discharge - General (Routine) Location: None Selected Ordered By: Roly Solano Follow Up Plan Follow up with: Srini Cross MD [Physician] - (Please schedule 1 week f/u after discharge.) Aristeo Slaughter MD [Primary Care Provider] - 03/01/21 (Post hospital follow up. Need Weekly CBC, Diff, CMP, ESR, CRP and Biweekly BMP for Cr follow up. VA NCOMYCIN dose to be adjusted by Pharmacy.) Jose L Jacobson MD [Physician] - (Call and schedule an appointment to be seen within two weeks.) Torres Christie MD [Physician] - 03/11/21 9:30 am () Patient Disposition: Xfer SNF Rehab Potential: Good I certify that the patient requires SNF services: Yes Overall status at discharge: patient is back to baseline Discharge Orders: Discharge Order (Routine); Ordered 02/22/21 Ordered By: Roly Solano QUALITY VTE Deep Vein Thrombosis/Pulmonary Embolism Present on Admission: No
[2021-02-22] MEDS: BUDESONIDE FORMOTEROL INH SCH (09:03)
[2021-02-22] MEDS: MUPIROCIN OINT 2% 22GM NARES SCH (09:03)
[2021-02-22] MEDS: DABIGATRAN ETEXILATE MESYLATE 150 MG CAPSULE PO SCH (09:04)
[2021-02-22] MEDS: GENTAMICIN SULFATE 40 MG, CLINDAMYCIN 300 MG in SODIUM CHLORIDE IRRIG SOLUTION 500 ML IRR SCH (09:06)
[2021-02-22] MEDS: VANCOMYCIN 1,000 MG in 0.9 % SODIUM CHLORIDE 250 ML IV SCH (10:12)
[2021-02-22] MEDS ORDERED: CEFEPIME 1 GM VIAL IV SCH (14:00)
== END 2021-02-22 11:02 | DRG 580 ==
LOC: ED 12:49 → MEDSUR 20:50
PROVIDERS: ADMIT Internal Medicine; ATTEND Internal Medicine